=== PATIENT | female | born 1940 | race Caucasian/White ===

== ENCOUNTER → 2016-06-10 | Outpatient (CLI) | payer OTHER ==
[~2016-06-10] MED LIST: ACET-1256 PO; ANAS1TAB19 PO; ASPI81TA28 PO; CALC-354 PO; GLIP-197 PO; IPRA0.037 NAE; MAGN1TAB15 PO; MELO15TA4 PO; METF1000 PO; PANT1TAB3 PO; PRT/20 PO; SIMV20TA2 PO; ZNTT/150 PO
[2016-06-10 12:59] LABS: ALT/SGPT 42 U/L (12-78); AST/SGOT 32 U/L (15-37); BLOOD UREA NITROGEN 18 mg/dl (7-18); BUN/CREATININE RATIO 21.5 (10-20); CALCIUM 9.3 mg/dl (8.5-10.1); CARBON DIOXIDE 28 mmol/L (21-32); CHLORIDE 103 mmol/L (98-107); CREATININE 0.82 mg/dl (0.60-1.20); GLUCOSE 145 mg/dl (70-99); POTASSIUM 4.1 mmol/L (3.5-5.1); SODIUM 139 mmol/L (136-145)
[2016-06-10 13:10] LABS: ESTIMATED AVERAGE GLUCOSE 160 mg/dl; HA1C FLAG Normal (Normal)
[2016-06-10 13:11] LABS: ALB/GLOB RATIO 1.1 (0.9-2); ALKALINE PHOSPHATASE 59 U/L (45-117); CHOLESTEROL 118 mg/dl (0-200); HDL CHOLESTEROL 39 mg/dl; LDL CHOLESTEROL CALCULATED 52 mg/dl; TRIGLYCERIDES 133 mg/dl (0-150); VERY LOW DENSITY LIPOPROT CALC 27 mg/dl
[2016-06-10 13:18] LABS: RATIO 27.9 mcg/mg (0-30.0)
== END | disposition home or self-care (01) ==
LOC: C.LABPVFM 09:03
PROVIDERS: ATTEND Family Medicine
DX: Z13.29 Encounter for screening for other suspected endocrine disorder (principal); E78.5 Hyperlipidemia, unspecified; E11.9 Type 2 diabetes mellitus without complications

== ENCOUNTER → 2016-08-31 | Outpatient (CLI) | payer OTHER ==
[~2016-08-31] MED LIST changes: -PANT1TAB3 PO; +PANT1TAB48 PO
[2016-08-31 13:42] VITALS: BP 118/72; PULSE 71; TEMP 36.7; O2SAT 95
--- NOTE | 2016-08-31 17:22 | Radiation Oncology Follow-Up ---
Radiation Oncology Follow-Up Date of Visit Aug 31, 2016. Reason For Visit Annual follow-up Radiation Completion Date finished 01-22-2015 Diagnosis (1) Lobular carcinoma of left breast Status: Resolved Onset Date: 12/03/2014 Stage: l (A) Permanent Comment: Abnormal left breast mammogram Status post core needle biopsy 12/03/2014 revealing invasive lobular carcinoma grade 1 Estrogen receptor positive, progesterone receptor positive, HER-2/aziza negative Status post lumpectomy and sentinel lymph node biopsy 12/23/2014 Stage [id number] Status post completion of radiation therapy 01/22/2015 received 3850 cGy utilizing accelerated partial breast treatment Last Edited By: Lola Sanz on Sep 03, 2015 14:14 History of Present Illness Ms. Rosales is a 76-year-old female without a family history of breast cancer. She was being followed with routine screening mammograms. She underwent bilateral digital screening mammogram on 11/20/2014. These studies were compared to the previous studies dated 11/19/2013. This study showed a 10 mm focal asymmetry with questionable associated architectural distortion in the left upper inner quadrant. Recommendations are for spot magnification views, true lateral views and possible breast ultrasounds. On 11/20/2014 patient underwent a left true lateral, spot compression CC and ML views. The tissue of the left breast is heterogeneously dense. There was persistence of an irregular mass with spiculated margins in the upper inner posterior left breast measuring 6.9 x 8.2 mm. No definite associated microcalcifications were noted. Real-time high-resolution sonographic evaluation was performed of the left upper inner quadrant. In the left breast at the 9:30 position 5 cm from the nipple an ill-defined hypoechoic solid- appearing mass measuring approximately 5.6 x 4.6 x 5.0 mm was identified. This was felt to correlate with the mammographic abnormality. This was given a BI-RADS Category 4 C of moderate suspicion for malignancy and a biopsy was recommended. On 12/03/2014 the patient underwent an ultrasound-guided core biopsy of the left breast lesion. This revealed an invasive lobular carcinoma, Shiv grade 1 of 3. Was no lymphovascular or perineural invasion identified. Estrogen receptors were positive (100%, strong intensity, H-score: 300). Estrogen receptors positive (85%, variable intensity, H-score: 170) HER-2/aziza overexpression negative. Ki-67 proliferation index 5% (low). HER-2/ aziza oncogene amplification by FISH confirmed the negative result obtained by immunohistochemistry. Case: [id number]. The patient is scheduled for a partial mastectomy and sentinel biopsy this Tuesday, December 23 and is scheduled to see Dr. Baker for medical oncology referral on 01/01/2015. The patient had questions about the role of radiation and wished to address them prior to her planned surgery. It is for this reason that we are asked to see the patient in referral. She return to our office and underwent CT simulation. She was found to be a good candidate for accelerated partial breast treatment. Interim History She's been doing well over this past year. She denies any changes to her breast. She has noted no masses or tenderness no change of the axilla. She's had no swelling of her arm. She is up-to-date on mammography. She did state that she will need scheduled for her next mammogram in November. Her last mammogram was a unilateral mammogram in May. She is on Arimidex and denies side effects. Allergies Coded Allergies: Doxycycline (Verified Allergy, Unknown, HIVES, 06/20/15) Home Medications Scheduled Anastrozole (Arimidex), 1 TAB PO QAM Aspirin (Aspirin Ec), 81 MG PO DAILY Calcium Carbonate-Cholecalcife (Caltrate 600+D), 1 TAB PO BID Glipizide (Glipizide Er), 1 TAB PO QAM Ipratropium [place] (Nasal) (Atrovent Nasal [place]), 2 SPRY ANGELLA BID Magnesium Chloride-Calcium Car (Slow Magnesium Chloride/ 70-117 mg), 1 TAB PO BID Meloxicam (Mobic), 15 MG PO QAM Metformin Hcl (Glucophage), 1,000 MG PO BID Ranitidine (Zantac), 1 TAB PO BID Simvastatin (Zocor), 20 MG PO QPM Scheduled PRN Acetaminophen (Tylenol), 1,000 MG PO TID PRN for Pain Review of Systems Gastrointestinal: Symptoms: WNL Oral: Symptoms: No Problems Respiratory: Symptoms: WNL Other Respiratory: " sinus drainage " Urinary: Symptoms: Nocturia Comments: nocturia times 1 or 2 Skin: Symptoms: No Problems Breast: Right Upper Arm Measurement: 30.0 Right Mid Arm Measurement: 24.0 Right Wrist Measurement: 16.5 Left Upper Arm Measurement: 30.0 Left Mid Arm Measurement: 22.5 Left Wrist Measurement: 17.2 Arm Dominence: Right Patient Cosmetic Evaluation: Excellent Staff Cosmetic Evalaluation: Excellent Physical Exam Vital Signs Date Time Temp Pulse Resp B/P Pulse Ox O2 Delivery O2 Flow Rate FiO2 08/31/16 13:42 36.7 71 16 118/72 95 Pain: Side: Bilateral Pain Location: None Patient Pain Scale: 0 - 10 Initial Pain Intensity: 0.0 Fatigue: None General Appearance: no apparent distress Eyes: normal inspection, EOMI Neck: no adenopathy, thyroid normal Respiratory/Chest: lungs clear, no respiratory distress, no accessory muscle use Breast: Breast examination reveals well-healed incisions of the left breast. There are no masses or tenderness no axillary adenopathy. There is mild fibrous changes above the incision. There is no telangiectasis or skin retractions. There are no nipple changes. Using the Energy score cosmesis she has a excellent outcome. The right breast showed no masses or tenderness and no axillary adenopathy. Cardiovascular: regular rate, rhythm, no gallop, no murmur Extremities: no pedal edema Neurologic/Psychiatric: no motor/sensory deficits, alert, normal mood/affect Skin: warm/dry Lymphatic: no adenopathy Laboratory Studies Test 06/10/16 09:10 06/10/16 09:15 08/11/16 13:43 Sodium Level 139 mmol/L (136-145) 140 mmol/L (136-145) Potassium Level 4.1 mmol/L (3.5-5.1) 4.2 mmol/L (3.5-5.1) Chloride Level 103 mmol/L (98-107) 104 mmol/L (98-107) Carbon Dioxide Level 28 mmol/L (21-32) 29 mmol/L (21-32) Anion Gap 8.0 mmol/L (3-11) 7.0 mmol/L (3-11) Blood Urea Nitrogen 18 mg/dl (7-18) 19 mg/dl (7-18) Creatinine 0.82 mg/dl (0.60-1.20) 0.85 mg/dl (0.60-1.20) Estimated GFR () 81.1 77.1 Estimated GFR (Non- 70.0 66.6 BUN/Creatinine Ratio 21.5 (10-20) 21.8 (10-20) Random Glucose 145 mg/dl (70-99) 142 mg/dl (70-99) Estimated Average Glucose 160 mg/dl Hemoglobin A1c 7.2 % (4.5-5.6) Calcium Level 9.3 mg/dl (8.5-10.1) 9.3 mg/dl (8.5-10.1) Total Bilirubin 0.4 mg/dl (0.2-1) 0.4 mg/dl (0.2-1) Aspartate Amino Transferase (AST) 32 U/L (15-37) 24 U/L (15-37) Alanine Aminotransferase (ALT) 42 U/L (12-78) 39 U/L (12-78) Alkaline Phosphatase 59 U/L (45-117) 63 U/L (45-117) Total Protein 7.0 gm/dl (6.4-8.2) 7.3 gm/dl (6.4-8.2) Albumin 3.7 gm/dl (3.4-5.0) 3.8 gm/dl (3.4-5.0) Globulin 3.3 gm/dl (2.5-4.0) 3.5 gm/dl (2.5-4.0) Albumin/Globulin Ratio 1.1 (0.9-2) 1.1 (0.9-2) Triglycerides Level 133 mg/dl (0-150) Cholesterol Level 118 mg/dl (0-200) HDL Cholesterol 39 mg/dl LDL Cholesterol, Calculated 52 mg/dl VLDL Cholesterol, Calculated 27 mg/dl Cholesterol/HDL Ratio 3.0 Thyroid Stimulating Hormone (TSH) 3.140 uIu/ml (0.300-4.500) Urine Random Creatinine 68.0 mg/dl Urine Random Microalbumin 19.0 mg/L Urine Microalbumin/Creatinine Ratio 27.9 mcg/mg (0-30.0) White Blood Count 7.38 K/uL (4.8-10.8) Red Blood Count 4.65 M/uL (4.2-5.4) Hemoglobin 13.8 g/dL (12.0-16.0) Hematocrit 41.0 % (37-47) Mean Corpuscular Volume 88.2 fL (80-100) Mean Corpuscular Hemoglobin 29.7 pg (25-34) Mean Corpuscular Hemoglobin Concent 33.7 g/dl (32-36) Platelet Count 219 K/uL (130-400) Mean Platelet Volume 10.5 fL (7.4-10.4) Neutrophils (%) (Auto) 49.6 % Lymphocytes (%) (Auto) 41.2 % Monocytes (%) (Auto) 4.5 % Eosinophils (%) (Auto) 4.1 % Basophils (%) (Auto) 0.5 % Neutrophils # (Auto) 3.66 K/uL (1.4-6.5) Lymphocytes # (Auto) 3.04 K/uL (1.2-3.4) Monocytes # (Auto) 0.33 K/uL (0.11-0.59) Eosinophils # (Auto) 0.30 K/uL (0-0.5) Basophils # (Auto) 0.04 K/uL (0-0.2) RDW Standard Deviation 43.6 fL (36.4-46.3) RDW Coefficient of Variation 13.6 % (11.5-14.5) Immature Granulocyte % (Auto) 0.1 % Immature Granulocyte # (Auto) 0.01 K/uL (0.00-0.02) Est Creatinine Clear Calc Drug Dose 54.7 ml/min Lactate Dehydrogenase 161 U/L (84-246) Additional Studies UNILATERAL LEFT DIGITAL DIAGNOSTIC MAMMOGRAM TOMOSYNTHESIS WITH CAD: 05/10/2016 CLINICAL HISTORY: 75-year-old woman presents for follow-up in the left breast status post treatment for left breast cancer performed December 2014. TECHNIQUE: Breast tomosynthesis in addition to standard 2D mammography was performed of the left breast. Current study was also evaluated with a Computer Aided Detection (CAD) system. COMPARISON: Comparison is made to exams dated: 11/06/2015 mammogram, 11/27/2014 mammogram, 11/27/2014 ultrasound, 11/20/2014 mammogram, and 11/19/2013 mammogram - [facility]. BREAST COMPOSITION: The tissue of the left breast is heterogeneously dense, which may obscure small masses. FINDINGS: There is expected architectural distortion, density and surgical clips in the 10:00 left breast, at the site of prior lumpectomy. There are stable rodlike calcifications posterior to the surgical site and moderate vascular calcifications in the left breast. A few benign round calcifications are also seen. No new suspicious mass, architectural distortion or cluster of microcalcifications is identified throughout the left breast. IMPRESSION: IMPRESSION: ACR-BI-RADS CATEGORY 3: PROBABLY BENIGN There are expected post treatment changes in the left breast from previous lumpectomy and radiation therapy. No definite mammographic evidence of malignancy. Recommend bilateral mammography in 6 months to ensure 2 years of stability post treatment for left breast cancer. These results and recommendations were discussed with the patient at the time of the exam. Approximately 10% of breast cancers are not detected with mammography. A negative mammographic report should not delay biopsy if a clinically suggestive mass is present. Nicole Reynolds M.D. ay/:05/10/2016 10:51:00 Assessment & Plan Plan: Patient was scheduled for her next mammogram. This will be a bilateral diagnostic mammogram. She continues on Arimidex. Continue regular follow-up with Dr. Baker and her primary care physician. We asked her to return to our office in 1 year. She may call if she has any questions or concerns in the interim. Total Time In Follow-Up I spent 20 minutes speaking to the patient performing examination. I spent 15 minutes reviewing information and completing this note. Copy To Cornelius Baker D.O.; Angeli Dutta M.D.
== END | disposition home or self-care (01) ==
LOC: C.ONC 13:17
PROVIDERS: ATTEND Physician Assistant Medical
DX: Z08 Encounter for follow-up examination after completed treatment for malignant neoplasm (principal); Z92.3 Personal history of irradiation; Z85.3 Personal history of malignant neoplasm of breast

== ENCOUNTER → 2016-11-10 | Outpatient (CLI) | payer OTHER ==
[~2016-11-10] MED LIST changes: -PANT1TAB48 PO; -PRT/20 PO
--- NOTE | 2016-11-10 17:13 | MAMMOGRAPHY REPORT ---
BILATERAL DIGITAL DIAGNOSTIC MAMMOGRAM TOMOSYNTHESIS WITH CAD: 11/10/2016 CLINICAL HISTORY: History of left breast cancer status post lumpectomy December 2014, here for interval f ollow-up. The patient reports no current complaints. TECHNIQUE: Breast tomosynthesis in addition to standard 2D mammography was performed. Current study was also evaluated with a Computer Aided Detection (CAD) system. Bilateral CC and MLO 2-D and tomosy nthesis images and spot magnification left CC and ML views were obtained. COMPARISON: Comparison is made to exams dated: 05/10/2016 mammogram, 11/06/2015 mammogram, 05/06/2015 ma mmogram, 12/23/2014 specimen, 12/23/2014 mammogram, and 12/23/2014 localization - [facility]. BREAST COMPOSITION: The tissue of both breasts is heterogeneously dense, which may obscure small mas ses. FINDINGS: There has been no significant interval change compared to prior exams. There are stable p ost surgical changes in the left upper inner quadrant from prior lumpectomy, including stable density , architectural distortion, and surgical clips at the lumpectomy bed. Benign coarse dystrophic calci fications in the left medial breast are stable. There are no suspicious masses, calcifications, or a reas of nonsurgical architectural distortion noted within either breast. IMPRESSION: ACR BI-RADS CATEGORY 2: BENIGN There is no mammographic evidence of malignancy in either breast. A 1 year screening mammogram is rec ommended. The patient has been verbally notified of the results. Approximately 10% of breast cancers are not detected with mammography. A negative mammographic report should not delay biopsy if a clinically suggestive mass is present. Summer Vasquez M.D. ah/:11/10/2016 14:38:35 Nuclear Power Reactor Operator: Francine Chapman RT(R)(M), [facility] letter sent: Normal 1/2 BI-RADS Code: ACR BI-RADS Category 2: Benign
== END | disposition home or self-care (01) ==
LOC: C.MAMM 13:07
PROVIDERS: ATTEND Physician Assistant Medical
DX: Z85.3 Personal history of malignant neoplasm of breast (principal)

== ENCOUNTER → 2016-12-06 | Outpatient (CLI) | payer OTHER ==
[2016-12-06 13:22] LABS: ESTIMATED AVERAGE GLUCOSE 157 mg/dl; HA1C FLAG Normal (Normal)
[2016-12-06 13:40] LABS: ALT/SGPT 41 U/L (12-78); BLOOD UREA NITROGEN 16 mg/dl (7-18); BUN/CREATININE RATIO 19.8 (10-20); CALCIUM 9.1 mg/dl (8.5-10.1); CARBON DIOXIDE 26 mmol/L (21-32); CHLORIDE 106 mmol/L (98-107); GLUCOSE 148 mg/dl (70-99); MAGNESIUM 1.7 mg/dl (1.8-2.4); POTASSIUM 4.2 mmol/L (3.5-5.1); SODIUM 140 mmol/L (136-145)
[2016-12-06 13:42] LABS: ALB/GLOB RATIO 1.1 (0.9-2); ALKALINE PHOSPHATASE 59 U/L (45-117); AST/SGOT 28 U/L (15-37)
== END | disposition home or self-care (01) ==
LOC: C.LABPVFM 08:22
PROVIDERS: ATTEND Family Medicine
DX: E78.5 Hyperlipidemia, unspecified (principal); E11.9 Type 2 diabetes mellitus without complications; J31.0 Chronic rhinitis; K21.9 Gastro-esophageal reflux disease without esophagitis; C50.919 Malignant neoplasm of unspecified site of unspecified female breast; E83.42 Hypomagnesemia

== ENCOUNTER → 2017-05-03 | Outpatient (CLI) | payer OTHER | END | disposition home or self-care (01) | LOC: C.MAMM 13:01 | PROVIDERS: ATTEND Nurse Practitioner Family | DX: D49.3 Neoplasm of unspecified behavior of breast (principal); M85.851 Other specified disorders of bone density and structure, right thigh; M85.852 Other specified disorders of bone density and structure, left thigh ==

== ENCOUNTER → 2017-06-20 | Outpatient (CLI) | payer OTHER ==
[2017-06-20 14:04] LABS: ALBUMIN 3.6 gm/dl (3.4-5.0); BLOOD UREA NITROGEN 17 mg/dl (7-18); CARBON DIOXIDE 28 mmol/L (21-32); CREATININE 0.77 mg/dl (0.60-1.20); GLUCOSE 151 mg/dl (70-99); POTASSIUM 4.1 mmol/L (3.5-5.1); SODIUM 138 mmol/L (136-145)
[2017-06-20 14:10] LABS: ALKALINE PHOSPHATASE 56 U/L (45-117); ALT/SGPT 42 U/L (12-78); AST/SGOT 25 U/L (15-37); CHOLESTEROL 119 mg/dl (0-200); LDL CHOLESTEROL CALCULATED 60 mg/dl; TOTAL PROTEIN 6.9 gm/dl (6.4-8.2)
== END | disposition home or self-care (01) ==
LOC: C.LABPVFM 09:27
PROVIDERS: ATTEND Family Medicine
DX: E78.5 Hyperlipidemia, unspecified (principal); N81.6 Rectocele; E11.9 Type 2 diabetes mellitus without complications; E83.42 Hypomagnesemia

== ENCOUNTER → 2017-08-30 | Outpatient (CLI) | payer OTHER ==
[~2017-08-30] MED LIST changes: +MELO-84 PO; -MELO15TA4 PO; +RANI150T85 PO; -ZNTT/150 PO
[2017-08-30 15:10] VITALS: BP 138/84; PULSE 80; TEMP 36.6; O2SAT 95
--- NOTE | 2017-08-30 17:07 | Radiation Oncology Follow-Up ---
Radiation Oncology Follow-Up Date of Visit Aug 30, 2017. Reason For Visit Annual follow-up Radiation Completion Date finished 01-22-2015 Diagnosis (1) Lobular carcinoma of left breast Status: Resolved Onset Date: 12/03/2014 Stage: l (A) Permanent Comment: Abnormal left breast mammogram Status post core needle biopsy 12/03/2014 revealing invasive lobular carcinoma grade 1 Estrogen receptor positive, progesterone receptor positive, HER-2/aziza negative Status post lumpectomy and sentinel lymph node biopsy 12/23/2014 Stage [id number] Status post completion of radiation therapy 01/22/2015 received 3850 cGy utilizing accelerated partial breast treatment Last Edited By: Lola Sanz on Sep 03, 2015 14:14 History of Present Illness Ms. Rosales is without a family history of breast cancer. She was being followed with routine screening mammograms. She underwent bilateral digital screening mammogram on 11/20/2014. These studies were compared to the previous studies dated 11/19/2013. This study showed a 10 mm focal asymmetry with questionable associated architectural distortion in the left upper inner quadrant. Recommendations are for spot magnification views, true lateral views and possible breast ultrasounds. On 11/20/2014 patient underwent a left true lateral, spot compression CC and ML views. The tissue of the left breast is heterogeneously dense. There was persistence of an irregular mass with spiculated margins in the upper inner posterior left breast measuring 6.9 x 8.2 mm. No definite associated microcalcifications were noted. Real-time high-resolution sonographic evaluation was performed of the left upper inner quadrant. In the left breast at the 9:30 position 5 cm from the nipple an ill-defined hypoechoic solid- appearing mass measuring approximately 5.6 x 4.6 x 5.0 mm was identified. This was felt to correlate with the mammographic abnormality. This was given a BI-RADS Category 4 C of moderate suspicion for malignancy and a biopsy was recommended. On 12/03/2014 the patient underwent an ultrasound-guided core biopsy of the left breast lesion. This revealed an invasive lobular carcinoma, [place] grade 1 of 3. Was no lymphovascular or perineural invasion identified. Estrogen receptors were positive (100%, strong intensity, H-score: 300). Estrogen receptors positive (85%, variable intensity, H-score: 170) HER-2/aziza overexpression negative. Ki-67 proliferation index 5% (low). HER-2/ aziza oncogene amplification by FISH confirmed the negative result obtained by immunohistochemistry. Case: [id number]. The patient is scheduled for a partial mastectomy and sentinel biopsy this December 23 and is scheduled to see Dr. Baker for medical oncology referral on 01/01/2015. The patient had questions about the role of radiation and wished to address them prior to her planned surgery. It is for this reason that we are asked to see the patient in referral. She return to our office and underwent CT simulation. She was found to be a good candidate for accelerated partial breast treatment. Interim History She has been doing well over this past year. She denies any changes to her breast. She has occasional mild discomfort. This is brief and minimal. She has noted no masses or tenderness no change of the axilla. She is up-to-date on mammography. She is on Arimidex and denies side effects. Allergies Coded Allergies: Doxycycline (Verified Allergy, Unknown, HIVES, 06/20/15) Home Medications Scheduled Anastrozole (Arimidex), 1 TAB PO QAM Aspirin (Aspirin Ec), 81 MG PO DAILY Calcium Carbonate-Cholecalcife (Caltrate 600+D), 1 TAB PO BID Glipizide (Glipizide Er), 1 TAB PO QAM Ipratropium [place] (Nasal) (Atrovent Nasal [place]), 2 SPRY ANGELLA BID Magnesium Chloride-Calcium Car (Slow Magnesium Chloride/ 70-117 mg), 1 TAB PO BID Meloxicam (Mobic), 15 MG PO QAM Metformin Hcl (Glucophage), 1,000 MG PO BID Ranitidine (Zantac), 1 TAB PO BID Simvastatin (Zocor), 20 MG PO QPM Scheduled PRN Acetaminophen (Tylenol), 1,000 MG PO TID PRN for Pain Review of Systems Gastrointestinal: Symptoms: WNL Oral: Symptoms: No Problems Respiratory: Symptoms: WNL Other Respiratory: " sinus drainage " Urinary: Symptoms: Nocturia Comments: nocturia times 1 Skin: Symptoms: No Problems Breast: Right Upper Arm Measurement: 30.0 Right Mid Arm Measurement: 24.0 Right Wrist Measurement: 16.9 Left Upper Arm Measurement: 30.0 Left Mid Arm Measurement: 23.5 Left Wrist Measurement: 18.0 Arm Dominence: Right Patient Cosmetic Evaluation: Excellent Staff Cosmetic Evalaluation: Excellent Physical Exam Vital Signs Date Time Temp Pulse Resp B/P (MAP) Pulse Ox O2 Delivery O2 Flow Rate FiO2 08/30/17 15:10 36.6 80 16 138/84 95 Fatigue: None General Appearance: no apparent distress Eyes: normal inspection, EOMI ENT: normal ENT inspection, hearing grossly normal Neck: no adenopathy, thyroid normal Respiratory/Chest: lungs clear, no respiratory distress, no accessory muscle use Breast: Breast examination reveals well-healed incisions of the left breast. There are fibrous changes around the area of the incision. There is slight telangiectasia. There are no distinct masses. There is no tenderness and no axillary adenopathy. Using the Bradford score cosmesis she has a good outcome. The right breast showed no masses or tenderness and no axillary adenopathy. Cardiovascular: regular rate, rhythm, no gallop, no murmur Extremities: no pedal edema Neurologic/Psychiatric: no motor/sensory deficits, alert, normal mood/affect Skin: warm/dry Pain Management Patient Reports Pain: No Side: Bilateral Patient Preferred Pain Scale: 0 - 10 Initial Pain Intensity: 0.0 Pain Management Plan She has no pain therefore requires no pain management. Laboratory Laboratory Results: not applicable Pathology Pathology Results: were reviewed, and pertinent findings noted in HPI Imaging Imaging Studies: were reviewed, and pertinent findings noted below Imaging Comments Patient: MARY LOU ROSALES [facility] Rec: [id number] Address1: [address] Address2: [place] ID: [id number] Date: 1940 Sex: F Ref Phy: Lola Sanz PA-C Att Phy: Lola Sanz PA-C Gricelda Phy: Angeli Dutta M.D. Inter Phy: Summer Vasquez MD [facility] Zip: [place] [address] SC: C.MAMM Report #: [id number] Couture Dressmaker: GRACY Diagnosis: 6 MO F/U TO ENSURE STABILITY- Service Date: 11/10/16 MNE: [id number] Ordering Dr: Lola Sanz PA-C CC: Lola Sanz PA-C CONF: DICTATED BY: Summer Vasquez MD MAMMOGRAPHY REPORT BILATERAL DIGITAL DIAGNOSTIC MAMMOGRAM TOMOSYNTHESIS WITH CAD: 11/10/2016 CLINICAL HISTORY: History of left breast cancer status post lumpectomy December 2014 , here for interval follow-up. The patient reports no current complaints. TECHNIQUE: Breast tomosynthesis in addition to standard 2D mammography was performed. Current study was also evaluated with a Computer Aided Detection (CAD ) system. Bilateral CC and MLO 2-D and tomosynthesis images and spot magnification left CC and ML views were obtained. COMPARISON: Comparison is made to exams dated: 05/10/2016 mammogram, 11/06/2015 mammogram, 05/06/2015 mammogram, 12/23/2014 specimen, 12/23/2014 mammogram, and localization - [facility]. BREAST COMPOSITION: The tissue of both breasts is heterogeneously dense, which may obscure small masses. FINDINGS: There has been no significant interval change compared to prior exams. There are stable post surgical changes in the left upper inner quadrant from prior lumpectomy, including stable density, architectural distortion, and surgical clips at the lumpectomy bed. Benign coarse dystrophic calcifications in the left medial breast are stable. There are no suspicious masses, calcifications, or areas of nonsurgical architectural distortion noted within either breast. IMPRESSION: ACR BI-RADS CATEGORY 2: BENIGN There is no mammographic evidence of malignancy in either breast. A 1 year screening mammogram is recommended. The patient has been verbally notified of the results. Approximately 10% of breast cancers are not detected with mammography. A negative mammographic report should not delay biopsy if a clinically suggestive mass is present. Summer Vasquez M.D. ah/:11/10/2016 14:38:35 Electrical High Tension Tester: Francine PENNINGTON(Lacey)([place]), [facility] letter sent: Normal 1/2 BI-RADS Code: ACR BI-RADS Category 2: Benign Dictated by: Summer Vasquez MD Signed by: Summer Vasquez MD Assessment & Plan Plan: Continue regular follow-up with medical oncology and her primary care physician. She continues on Arimidex. Continue with scheduled mammography. We asked her to return to our office in 1 year. She may call if she has any questions or concerns in the interim. Total Time In Follow-Up I spent 20 minutes speaking to the patient and performing examination. I spent 15 minutes reviewing information on completing this note. Copy To Cornelius Baker D.O.; Angeli Dutta M.D.
== END | disposition home or self-care (01) ==
LOC: C.ONC 14:32
PROVIDERS: ATTEND Physician Assistant Medical
DX: Z08 Encounter for follow-up examination after completed treatment for malignant neoplasm (principal); Z92.3 Personal history of irradiation; Z85.3 Personal history of malignant neoplasm of breast

== ENCOUNTER 2023-07-12 06:12 | Inpatient (IN) ==
--- NOTE | 2023-07-07 09:57 | Anesthesiology Consultation ---
Date of Service July 07, 2023 Assessment & Plan (1) Encounter for pre-operative examination: - Check BSG AM DOS - Infectious disease screening: Per assessment on 07/07/23: No known infectious disease contacts or current infectious disease symptoms. No noted recent Covid positive test result. - PCP note (07/07/23): "Low to moderate risk.. Patient is cleared for scheduled surgery" Chart Review Chart Review: Acceptable Risk for Surgery and Patient NOT seen in Pre Admission Testing History Surgery Operation Date: 07/12/23 07:45 Proposed Procedures p L3-L5 Decompression and Fusion, Spinal Cord Monitoring - Ramos Coombs DO Height/Weight Height: 5 ft 3 in Weight: 70.307 kg Allergies Allergy/AdvReac Type Severity Reaction Status Date / Time doxycycline Allergy Mild HIVES Verified 07/07/23 13:33 Medications Home Medications Medication Instructions Recorded Confirmed Last Taken anastrozole 1 mg tablet (Arimidex) 1 mg PO QAM 07/28/18 07/07/23 03/05/21 magnesium chloride 71.5 mg 1 tab PO BID 07/28/18 07/07/23 03/05/21 (magnesium chloride) tablet,delayed release (Slow-Mag) calcium carbonate 600 mg-vitamin 1 tab PO BID 02/20/19 07/07/23 03/05/21 D3 20 mcg (800 unit) chewable tablet (Caltrate 600 plus D) cetirizine 10 mg tablet (Zyrtec) 10 mg PO QAM 02/20/19 07/07/23 03/05/21 conjugated estrogens 0.625 mg/gram 0.625 mg vaginal UD 02/20/19 07/07/23 03/05/21 vaginal cream (Premarin) acetaminophen 650 mg 1,300 mg PO Q8H PRN Pain 02/20/21 07/07/23 03/05/21 tablet,extended release cholecalciferol (vitamin D3) 25 25 mcg PO QPM 02/20/21 07/07/23 03/05/21 mcg (1,000 unit) capsule (Vitamin D3) metformin 1,000 mg tablet 1,000 mg PO BID #180 tabs 10/21/22 07/07/23 Unknown famotidine 20 mg tablet (Pepcid) 20 mg PO BID #180 tabs 11/30/22 07/07/23 Unknown fluticasone propionate 50 1 spray intranasal DAILY #48 grams 01/10/23 07/07/23 Unknown mcg/actuation nasal spray,suspension glipizide 10 mg tablet, extended 10 mg PO QAM #90 tabs 02/16/23 07/07/23 Unknown release 24 hr multivitamin 1 tab PO QAM 03/09/23 07/07/23 Unknown insulin glargine 100 unit/mL (3 25 unit (0.25 mL) subcut QPM #18 mL 05/05/23 07/07/23 Unknown mL) subcutaneous pen (Basaglar KwikPen U-100 Insulin) pen needle, diabetic 32 gauge x #100 ea 07/05/23 07/07/23 Unknown 5/32" (BD Ultra-Fine Clotilde Pen Needle) Probiotic 1 cap PO QAM 07/07/23 07/07/23 Unknown flash glucose scanning reader #1 ea 07/07/23 07/07/23 Unknown (FreeStyle Susy 2 [place]) flash glucose sensor (FreeStyle #1 ea 07/07/23 07/07/23 Unknown Susy 2 Sensor kit) omeprazole 20 mg capsule,delayed 20 mg PO QAM 07/07/23 07/07/23 Unknown release simvastatin 20 mg tablet 20 mg PO QPM 07/07/23 07/07/23 Unknown Past Medical History Medical History Cardiac murmur Echo (done 2020 for murmur evaluation): Mild mitral annular calcification, trace MR/TR Chronic back pain Chronic SI joint pain Diabetes mellitus, type 2 GERD (gastroesophageal reflux disease) Hearing deficit bilateral hearing aids History of colon polyps Lobular carcinoma of left breast 2014- surgery/radiation/oral chemo LUE restriction Migraine Hx Osteoarthritis Seborrheic keratosis Spinal stenosis, lumbar region with neurogenic claudication Past Family History Family History Brother Family history of diabetes mellitus Family hx colonic polyps Father Myocardial infarction Other Coronary heart disease No family history of adverse response to anesthesia Denies family history of Ovarian cancer Prostate cancer Breast cancer Colorectal cancer Past Surgical History Surgical History History of cataract surgery R/L History of section History of colonoscopy History of endoscopic sinus surgery History of esophagogastroduodenoscopy (EGD) History of hemorrhoidectomy History of left breast biopsy malignant History of lumpectomy of left breast LUE restriction History of unilateral salpingectomy left History of wisdom tooth extraction Hx of sinus surgery Nausea and vomiting after administration of anesthetic agent many years ago, no issues recently Status post left partial knee replacement Social History Smoking Status: Never smoker Do You Dip or Chew Tobacco: No Hx Alcohol Use: No Hx Substance Use: No substance use type: does not use Lab Results Anesthesia Preop Results Results Anesthesia Widget: WBC 7.47 K/ul (4.8-10.8) 07/01/23 Hgb 12.7 g/dl (12.0-16.0) 07/01/23 Hct 39.1 % (37.0-47.0) 07/01/23 Plt 218 K/uL (130-400) 07/01/23 Na 139 mmol/L (136-145) 07/01/23 K 4.3 mmol/L (3.5-5.1) 07/01/23 Cl 103 mmol/L (98-107) 07/01/23 CO2 25 mmol/L (21-32) 07/01/23 BUN 16 mg/dl (6-23) 07/01/23 Creat 0.72 mg/dl (0.6-1.2) 07/01/23 Glucose Level 118 mg/dl (70-99(Fasting)) H 07/01/23 PT 11.1 Seconds (9.0-12.0) 07/01/23 INR 1.0 (0.9-1.1) 07/01/23 HA1c 8.4 % (4.5-5.6) H 07/01/23 Urine Color Yellow 07/01/23 Urine Appearance Clear (Clear) 07/01/23 Urine pH 5.5 (4.5-7.5) 07/01/23 Urine Specific [place] 1.023 (1.000-1.030) 07/01/23 Urine Protein Negative (Negative) 07/01/23 Urine Glucose (UA) Negative (Negative) 07/01/23 Urine Ketones Trace (Negative) H 07/01/23 Urine Blood Negative (Negative) 07/01/23 Urine Nitrite Negative (Negative) 07/01/23 Urine Bilirubin Negative (Negative) 07/01/23 Urine Urobilinogen Negative (Negative) 07/01/23 Urine Leukocyte Esterase 2+ (Negative) H 07/01/23 Blood Type A Positive 07/01/23 Antibody Screen NEGATIVE 07/01/23 Testing Laboratory Results Urine culture (07/05/23): pin-point growth present, reincubating (preliminary report) Surgeon/PCP aware of abnormal preop UA > ordered urine culture* Electrocardiogram Date: 07/01/23 NSR at 80bpm. NS STA. Chest X-Ray Date: 07/01/23 Findings: + NAD Echocardiogram Date: 10/13/20 EF > 70%. No RWMA. Mild cLVH. Normal estimated RVSP, assuming normal right atrial pressure. Trace MR/TR.
--- OUTSIDE RECORDS SUMMARY | 2023-07-12 07:04 | External Medical Summary | Summary of Care ---
Author Name Unknown Organization [facility] Address [address] [place] [address] Phone [phone] Care Team Providers Care Bookmobile Clerk Name Role Phone Unavailable Primary Care Provider Unavailabl e Encounter Details Date Type Department Care Team (Late st Contact Info) Description 07/11/2023 Orders Only Outcomes Research Department [address] [place] [address] Gris Delgado CHRA MyCode Research Other*[id number] Allergies Active Allergy Reactions Criticality Noted Date Comments Doxycycline Hyclate 05/19/2010 documented as of this encounter (statuses as of 07/11/2023) Medications Medication Sig Dispensed Refills Start Date End Date Status ATROVENT 0.03 % NA SOLNIndications:Chron ic rhinitis,Dysfunction of eustachian tube 2 puffs per nostril 2 to 3 times a day as needed if drainage persists 1 Bottle 5 05/19/2010 Active SIMVASTATIN 20 MG PO TABS 1 tablet daily 0 Active ACETAMINOPHEN 500 MG PO CAPS as needed 0 Active Calcium Carbonate-Vitamin D (CALCIUM 600+D) 600-200 MG-UNIT per tablet 1 twice a day 0 Active glipiZIDE (GLUCOTROL) 5 MG Tablet 1 daily 0 Active anastrozole (ARIMIDEX) 1 MG Tablet 1 daily 0 Active MetFORMIN (GLUCOPHAGE) 1000 MG Tablet Take 1 Tablet by mouth 2 times a day with morning and evening meals. 0 Active Ipratropium [place] 0.06 % nasal spray 0 10/23/2016 Active Magnesium Cl-Calcium Carbonate (SLOW-MAG) 71.5-119 MG TBEC Take by mouth. 0 Acti ve Famotidine 20 MG Oral Tablet (Pepcid) Take 1 Tablet by mouth in the morning and 1 Tablet before bedtime. 0 Active Vitamin D (Cholecalciferol) 25 MCG (1000 UT) Oral Capsule Take by mouth. 0 Active Estrogens, Conjugated 0.625 MG/GM Vaginal Cream (Premarin) Administer into the vagina 0.5 g once a day Tuesday and only . Use 0.5 g with applicator at bedtime 30 g 6 12/28/2021 Active Insulin Glargine Solostar 100 UNIT/ML Subcutaneous Solution Pen-injector (Local Offer NetworkPen) Inject under the skin . 0 Active Premarin 0.625 MG/GM Vaginal Cream (Estrogens Conjugated) Administer 0.5 g into the vagina once a day Tuesday and only. At bedtime. 42.5 g 2 12/02/2022 Active documented as of this encounter (statuses as of 07/11/2023) Active Problems Problem Noted Date Diagnosed Date Advanced directives, counseling/discussion 04/11 Uterovaginal prolapse 12/17/2016 Cystocele, lateral 12/17/2016 Rectocele 12/17/2016 Feeling of incomplete bladder emptying 7 Presbycusis 05/26/2011 Esophageal reflux 10/13/2009 Chronic maxillary sinusitis 05/05/2007 Chronic rhinitis 05/05/2007 Chronic sinusitis NON ALLERGIC RHINITIS documented as of this encounter (statuses as of 07/11/2023) Immunizations Name Administration Dates Next Due COVID-19 mRNA, LNP-s, No Pre serve, 2-Dose Series (Promimic) 07/19/2020,06/27/2020 documented as of this encounter Social History Tobacco Use Types Packs/Day Years Used Date Smoking Tobacco: Never Smokeless Tobacco: Never Alcohol Use Standard Drinks/Week Comments No 0 (1 standard drink = 0.6 oz pur e alcohol) Sex and Gender Information Value Date Recorded Sex Assigned at Not on file Gender Identity Not on file Sexual Orientation Not on file Job Start Date Occupation Industry Not on file Not on file Not on file documented as of this encounter Plan of Treatment Upcoming Encounters Date Type Department Care Team (Late st Contact Info) Description 05/22/2024 11:05 AM EST Office Visit Urogynecology [facility] [address] [address] Placido Bowen MD [address] [place] [id number] Nurse Georgiana Prince [address] [place] [address] Scheduled Orders Name Type Priority Associated Diagnoses Orde r Schedule MYCODE INITIAL ADULT Lab Routine MyCode Research Other*[id number] Expected: 07/11/2023 (Approximate), Expires: 07/30/2024 Health Maintenance Due Date Last Done Comments Depression Screening 1952 DTaP,Tdap,and Td Vaccines (1 - Tdap) 08/07/1959 Zoster Vaccines (1 of 2) 1990 Pneumococcal Vaccine: 65+ Years (1 - PCV) 2005 DXA Scan 11/06/2017 11/06/2010, 0608/2010, 09/28/2006, Additional history exists COVID-19 Vaccine (3 - 2022-24 season) 2023 07/19/2020, 06/27/2020 Influenza Vaccine (FLU shot) (#1) 2023 GARDASIL-HPV IMMUNIZATION SERIES Aged Out No longer eligible based on patient's age to complete this topic Hepatitis B Aged Out No longer eligi ble based on patient's age to complete this topic MENINGOCOCCAL (MENACTRA/MENVEO) Aged Out No longer eligible based on patient's age to complete this topic documented as of this encounter Medical Devices Not on filedocumented as of this encounter Visit Diagnoses Diagnosis My[facility] Research Other*[id number] documented in this encounter
[2023-07-12] MEDS: LR 60ML/HR IV SCH (07:05)
[2023-07-12] MEDS: LR 15ML/HR IV SCH (07:05)
[2023-07-12] MEDS: CeleBREX 200 MG CAP PO SCH (07:06)
[2023-07-12] MEDS: ACETAMINOPHEN 500 MG TAB PO SCH (07:06)
[2023-07-12] MEDS: GABAPENTIN 300 MG CAP PO SCH (07:06)
[2023-07-12] MEDS ORDERED: ONDANSETRON INJ 2 MG/ML 2 ML VIAL ONE (07:13)
[2023-07-12] MEDS ORDERED: SUGAMMADEX SODIUM 200 MG/2 ML VIAL IV ONE (07:13)
[2023-07-12] MEDS ORDERED: fentaNYL citrate PF 100 MCG/2 ML VIAL ONE (07:13)
[2023-07-12] MEDS ORDERED: ROCURONIUM BROMIDE 10 MG/ML 5 ML VIAL IV ONE (07:13)
[2023-07-12] MEDS ORDERED: PROPOFOL IV EMULSION 10 MG/ML 20 ML VIAL IV ONE (07:13)
[2023-07-12] MEDS ORDERED: LIDOCAINE 2% 2 ML VIAL/AMP(20MG/ML) INFIL ONE (07:13)
[2023-07-12] MEDS ORDERED: DEXAMETHASONE SOD INJ 4 MG/ML VIAL ONE (07:13)
[2023-07-12] MEDS ORDERED: ePHEDrine sulfate 50 MG/ML AMP IV PRN (07:21)
[2023-07-12] MEDS ORDERED: ONDANSETRON INJ 2 MG/ML 2 ML VIAL IV PRN ×2 (07:21→11:28)
[2023-07-12] MEDS ORDERED: ATROPINE SULFATE 0.1 MG/ML 10ML SYR IV PRN (07:21)
--- NOTE | 2023-07-12 07:37 | History & Physical Bridge Note ---
Date of Service July 12, 2023 History & Physical Bridge Note I have examined the patient, reviewed the History & Physical and in the interval since the performance of the History & Physical I have noted the following changes of clinical significance: no changes noted
--- NOTE | 2023-07-12 07:39 | History & Physical Report ---
Date of Service July 12, 2023 Assessment & Plan (1) Neurogenic claudication due to lumbar spinal stenosis: Plan: L3-L5 decompression and fusion History of Present Illness Chief Complaint: Back and bilateral leg pain Primary Care Provider: Ruth Barnett MD This is a 82-year-old female who presents with persistent back and leg pain a failed extensive course of nonoperative care is here for surgical invention. Allergies Allergy/AdvReac Type Severity Reaction Status Date / Time doxycycline Allergy Severe HIVES Verified 07/12/23 06:51 Home Medications Medication Instructions Recorded Confirmed Type anastrozole 1 mg tablet (Arimidex) 1 mg PO QAM 07/28/18 07/12/23 History magnesium chloride 71.5 mg 1 tab PO BID 07/28/18 07/12/23 History (magnesium chloride) tablet,delayed release (Slow-Mag) calcium carbonate 600 mg-vitamin 1 tab PO BID 02/20/19 07/12/23 History D3 20 mcg (800 unit) chewable tablet (Caltrate 600 plus D) cetirizine 10 mg tablet (Zyrtec) 10 mg PO QAM 02/20/19 07/12/23 History conjugated estrogens 0.625 mg/gram 0.625 mg vaginal UD 02/20/19 07/12/23 History vaginal cream (Premarin) acetaminophen 650 mg 1,300 mg PO Q8H PRN Pain 02/20/21 07/12/23 History tablet,extended release cholecalciferol (vitamin D3) 25 25 mcg PO QPM 02/20/21 07/12/23 History mcg (1,000 unit) capsule (Vitamin D3) metformin 1,000 mg tablet 1,000 mg PO BID #180 tabs 10/21/22 07/12/23 Rx famotidine 20 mg tablet (Pepcid) 20 mg PO BID #180 tabs 11/30/22 07/12/23 Rx fluticasone propionate 50 1 spray intranasal DAILY #48 grams 01/10/23 07/12/23 Rx mcg/actuation nasal spray,suspension glipizide 10 mg tablet, extended 10 mg PO QAM #90 tabs 02/16/23 07/12/23 Rx release 24 hr multivitamin 1 tab PO QAM 03/09/23 07/12/23 History insulin glargine 100 unit/mL (3 25 unit (0.25 mL) subcut QPM #18 mL 05/05/23 07/12/23 Rx mL) subcutaneous pen (Basaglar KwikPen U-100 Insulin) pen needle, diabetic 32 gauge x #100 ea 07/05/23 07/07/23 Rx /32" (BD Ultra-Fine Clotilde Pen Needle) Probiotic 1 cap PO QAM 07/07/23 07/12/23 History omeprazole 20 mg capsule,delayed 20 mg PO QAM 07/07/23 07/12/23 History release simvastatin 20 mg tablet 20 mg PO QPM 07/07/23 07/12/23 History flash glucose scanning reader #1 ea 07/08/23 Rx (FreeStyle Susy 2 [place]) flash glucose sensor (FreeStyle #1 ea 07/08/23 Rx Susy 2 Sensor kit) Past Med/Surg History Medical History Cardiac murmur Echo (done 2020 for murmur evaluation): Mild mitral annular calcification, trace MR/TR Chronic back pain Chronic SI joint pain Diabetes mellitus, type 2 GERD (gastroesophageal reflux disease) Hearing deficit bilateral hearing aids History of colon polyps Lobular carcinoma of left breast 2014- surgery/radiation/oral chemo LUE restriction Migraine Hx Osteoarthritis Seborrheic keratosis Spinal stenosis, lumbar region with neurogenic claudication Surgical History History of cataract surgery R/L History of section History of colonoscopy History of endoscopic sinus surgery History of esophagogastroduodenoscopy (EGD) History of hemorrhoidectomy History of left breast biopsy malignant History of lumpectomy of left breast LUE restriction History of unilateral salpingectomy left History of wisdom tooth extraction Hx of sinus surgery Nausea and vomiting after administration of anesthetic agent many years ago, no issues recently Status post left partial knee replacement Family History Brother Family history of diabetes mellitus Family hx colonic polyps Father Myocardial infarction Other Coronary heart disease No family history of adverse response to anesthesia Denies family history of Ovarian cancer Prostate cancer Breast cancer Colorectal cancer Social History Smoking Status: Never smoker Second Hand Exposure: No; Do You Dip or Chew Tobacco: No; Tobacco Cessation Education Requested by Patient: No Hx Alcohol Use: No Hx Substance Use: No Preferred Language: Hungarian Communication Ability: Effective Visual Impairment: Limited Hearing Ability: Use of Hearing Aid [place] Required: No Beliefs That Will Affect Care: None marital status: Current Living Situation: Spouse current occupational status: retired How many Children do You have: 3 How many Children do You have Comment: 1 child is adopted. Other Information That Helps Us Care for You: No Feels Safe at Home: Yes Safety Concerns: Feels Safe At This Time Childhood Exposure to Second-Hand Smoke: Yes Diet: regular caffeine: No during the past year weight has: remained stable Dental Care, Regularly: Yes Physical Activity Frequency: Does not Exercise Seatbelt Use: always Sunscreen Use: Yes Assistive Devices: Glasses and Hearing Aid - Bilateral Physical Exam Physical Exam: Patient is alert and oriented Heart regular rhythm lungs clear Results & Data Results & Data Vital Signs (Past 12 Hours) Vital Signs Temp Pulse Resp BP Pulse Ox O2 Del Method 07/12/23 06:57 Room Air 07/12/23 06:57 36.6 C 90 18 139/84 97 Room Air
[2023-07-12] MEDS: ceFAZolin 2000MG 2,000 MG/15 ML SYR IV SCH ×2 (07:50→15:12)
[2023-07-12] MEDS: BUPIVACAINE/EPINEPHRINE 0.5% MPF 1:200,000 30 ML VIAL ONE (08:14)
[2023-07-12] MEDS: ceFAZolin 330 MG/ML 1 GM VIAL ONE (08:22)
--- NOTE | 2023-07-12 09:35 | Operative Report ---
Post Operative Report Pre & Post Diagnosis Operation Date: 07/12/23 07:45 Pre-Op Diagnosis: Lumbar spinal stenosis with neurogenic claudication Post-Op Diagnosis: Same I identified the patient and participated in the time-out.: Yes Procedure Operation Date: 07/12/23 07:45 Actual Procedures #1 lumbar decompression bilaterally facetectomies and foraminotomies L2-L3, L3- L4 L4-5. #2 posterior spinal fusion L3-L5. #3 placement of posterior instrumentation L3-L5. #4 interbody fusion L3-L4 L4-5. #5 placement spiral 9 x 26 mm at L3-L4 and L4-5. #6 placement locally harvested morselized autograft and posterior gutters. #7 placement of infuse collagen sponge combined with Koros in the posterior gutters and I factor in the interbody space. Surgeon Ramos Coombs DO Plastic Bubble Packer Shanae Shields Estimated Blood Loss 50 Findings Consistent with Post-Op Diagnosis Specimens None Indications This is a this is an 82-year-old female Description of Procedure Patient was met with preoperative Case discussed questions addressed. Then the patient was taken back to the operative suite underwent patient placed in the prone position ingestible top [place] frame. All bony promises well-padded eyes inspected to ensure no external precipice spine. This point the lumbar spine was prepped and draped in a sterile fashion. Sharp dissection with assistance of Bovie cautery form down to exposing the lamina transverse processes of L3 L4- 5. From caudal assessment fashion complete laminectomy of L4 L3 and partial laminectomy L2 was performed including bilaterally facetectomies and foraminotomies addressing severe spinal stenosis. Pedicle screws then placed at L3 L4-5 bilaterally with assistance of fluoroscopy and proper size minerva placed. By way of transfer approach on the right the discectomy L4-5 was performed endplates guarded to subcortical mean bone and 9 x 26 mm spiral cage with I factor tapped in position. Then proceeded to L3-L4 and again by way of transforaminal approach this time with a left complete discectomy performed endplates guarded to subcortical bleeding bone and again a 9 x 26 mm Spira cage fluid with I factor tapped position. The rods and locked in final position bilaterally. Transverse processes of L3 L4-5 burred to subcortical bleeding bone infuse collagen sponge by mass graft local graft placed in posterior gutters. 15 round PUJA inserted. The incision was then closed with 1 Vicryl fascia 2-0 Vicryl subcutaneously and 4 Monocryl for fascial closure. Steri- Strips sterile dressing placed. Patient waken taken to PACU in stable condition. Please note spinal cord monitoring was utilized at the procedure no changes noted. Lastly Shanae Shields was present at the entire surgery upon the patient positioning complex portion of the surgery and final skin closure. I attest to the content of the Intraoperative Record and any orders documented therein. Any exceptions are noted below.
[2023-07-12] MEDS: fentaNYL citrate PF 100 MCG/2 ML VIAL IV PRN (10:02)
[2023-07-12] MEDS: HYDROmorphone INJ 1 MG/ML SYRINGE IV PRN (10:38)
--- NOTE | 2023-07-12 10:52 | Anesthesiology Progress Note ---
Date of Service July 12, 2023 Anesthesia Post Procedure Vital Signs Vital Signs: Temp Pulse Resp BP Pulse Ox O2 Del Method O2 Flow Rate 07/12/23 10:45 79 18 150/75 H 97 Nasal Cannula 2 07/12/23 10:35 75 18 150/77 H 98 Nasal Cannula 2 07/12/23 10:25 76 16 149/73 H 98 Oxymask 2 07/12/23 10:15 76 17 154/79 H 96 Oxymask 2 07/12/23 10:05 72 16 160/78 H 100 Oxymask 4 07/12/23 09:55 71 17 161/78 H 99 Oxymask 6 07/12/23 09:48 36 C L 76 17 159/74 H 100 Oxymask 6 07/12/23 06:57 Room Air 07/12/23 06:57 36.6 C 90 18 139/84 97 Room Air Pain Intensity Back: Pain Intensity: 6 Transfer of Care Handoff Completed per policy Notes Mental Status: alert / awake / arousable Patient Amnestic to Procedure: Yes Nausea / Vomiting: adequately controlled Pain: adequately controlled Airway Patency, RR, SpO2: stable & adequate BP & HR: stable & adequate Hydration State: stable & adequate Anesthetic Complications: no major complications apparent and Pt Satisfied with anesthetic care
[2023-07-12] MEDS: HYDROmorphone INJ 1 MG/ML SYRINGE ONE (11:01)
[2023-07-12] MEDS ORDERED: traMADol HCL 50 MG TABLET PO PRN (11:28)
[2023-07-12] MEDS ORDERED: LORazepam 0.5 MG in SYRINGE 0.25 ML IV PRN (11:28)
[2023-07-12] MEDS ORDERED: DO NOT ADMINISTER FLU VACCINE PRN (11:28)
[2023-07-12] MEDS ORDERED: PROMETHAZINE HCL 12.5 MG in SODIUM CHLORIDE 0.9% 50 ML IV PRN (11:28)
[2023-07-12] MEDS ORDERED: ONDANSETRON 4 MG OD TAB PO PRN (11:28)
[2023-07-12] MEDS ORDERED: HYDROmorphone INJ 1 MG/ML SYRINGE IV PRN (11:28)
[2023-07-12] MEDS ORDERED: NALOXONE HCL 0.4 MG/1 ML VIAL/CARP IV PRN (11:28)
[2023-07-12] MEDS ORDERED: LORazepam 0.5 MG TAB PO PRN (11:28)
[2023-07-12] MEDS ORDERED: diphenhydrAMINE Capsule 25 MG CAP PO PRN (11:28)
[2023-07-12] MEDS ORDERED: SOD PHOSPHATE/SOD BIPHOSPHATE ENEMA 132 ML BTL PR PRN (11:28)
[2023-07-12] MEDS ORDERED: DO NOT ADMINISTER PNEUMOCOCCAL VACCINE PRN (11:28)
[2023-07-12] MEDS ORDERED: ALUMINUM/MAGNESIUM SUSP 30 ML UDC PO PRN (11:28)
[2023-07-12] MEDS ORDERED: FAMOTIDINE 20 MG TAB PO PRN (11:28)
[2023-07-12] MEDS ORDERED: hydrOXYzine HCl 25 MG TAB PO PRN (11:28)
[2023-07-12] MEDS ORDERED: METOCLOPRAMIDE HCL INJ 5 MG/ML 2 ML VIAL IV PRN (11:28)
[2023-07-12] MEDS ORDERED: DEXTROSE 50% 50 ML SYRINGE IV PRN (12:07)
[2023-07-12] MEDS ORDERED: PHARMACY GLYCEMIC MGMT CONSULT PRN (12:07)
[2023-07-12] MEDS ORDERED: CARBOHYDRATES FOR HYPOGLYCEMIA PO PRN (12:07)
[2023-07-12] MEDS ORDERED: GLUCOSE 10 TAB/TUBE PO PRN (12:07)
[2023-07-12] MEDS ORDERED: GLUCAGON FOR INJ 1 MG VIAL SQ PRN (12:07)
[2023-07-12] MEDS ORDERED: GLUCOSE 40% GEL 15 GM TUBE PO PRN (12:07)
[2023-07-12] MEDS: LACTATED RINGER'S 1,000 ML IV SCH (12:10)
[2023-07-12] MEDS: SODIUM CHLORIDE 0.9% 1,000 ML IV SCH (12:10)
--- NOTE | 2023-07-12 13:23 | Fluoroscopy Report ---
FL lumbar spine 2-3V CLINICAL HISTORY: L3-L5 decompression/fusion COMPARISON STUDY: Lumbar spine MRI June 29, 2022. FLUOROSCOPY TIME: 20.6 seconds. Ka, r: 15.58 mGy FLUOROSCOPIC IMAGES: 2 FINDINGS: Fluoroscopy was provided during L3-L4 and L4-L5 discectomies. Posterior decompression with bilateral pedicle screw fusion from L3 through L5 is noted. Hardware is intact. IMPRESSION: Fluoroscopy provided during L3-L5 decompression and fusion, as above. ACT 112: Negative or not required by law. Electronically signed by: Hair Ross M.D. 07/12/2023 1:09 PM
--- NOTE | 2023-07-12 13:24 | Pharmacy Report ---
Pharmacy Glycemic Short Note 2 - Date of Service July 12, 2023 - Glycemic Short BSG Results (Last 24 hours): 07/12/23 07/12/23 07/12/23 06:49 09:50 11:43 POC Glucose 184 H 188 H 227 H OUTPATIENT ANTIDIABETIC REGIMEN: * Lantus 25 units SC HS * Metformin 1000 mg PO BIDM * Glipizide ER 10 mg AM * HbA1c: 8.4% (07/01/23) ASSESSMENT: * 82 yo F admitted on 07/12/23 postoperatively following spinal surgeon. Pharmacy has been consulted to assist with inpatient glycemic management. Patient is a Type 2 diabetic as an outpatient. Please refer to outpatient regimen and most recent HbA1c above. * Received 4 mg of IV Dexamethasone perioperatively. Ordered a T2DM diet. Will follow to see if patient tolerates diet postop. BSGs were 184 mg/dL this AM and 227 mg/dL following surgery. Patient did report taking Lantus last evening. No ongoing steroids ordered. * Novolog will be started with tight coverage initially given hyperglycemia and steroid use. May be able to back off tomorrow. Will give home dose of Lantus now x 1. Will add an HS basal scale in the event that hyperglycemia persists throughout this evening. Plan to continue HS dosing of basal to match home regimen. PLAN FOR INPATIENT GLYCEMIC CONTROL: * Hold outpatient oral diabetes medications * Basal insulin * Lantus 25 units SC x 1 now * Lantus 0-10 units SC x 1 HS (see eMAR for more details) * Reassess basal dose tomorrow * Bolus insulin * NovoLog per scale ACHS or Q6hrs while NPO * Goal Range: Low 110 mg/dL - High 140 mg/dL * Correction Factor: 15 mg/dL/unit * Nutritional / Prandial insulin per carb ratio of 1 unit per 5 grams CHO consumed
[2023-07-12] MEDS: LANTUS PER UNIT CHARGE SQ STA (13:36)
[2023-07-12] MEDS: INSULIN ASPART PER UNIT CHARGE SC SCH (13:36)
[2023-07-12] MEDS: ACETAMINOPHEN 1,000 MG/100 ML VIAL IV PRN (13:54)
[2023-07-12] MEDS ORDERED: metFORMIN HCL 500 MG TAB PO SCH (17:00)
[2023-07-12] MEDS: HYDROmorphone INJ 0.5 MG/0.5 ML SYR IV PRN (18:45)
--- NOTE | 2023-07-12 19:36 | Hospitalist Consultation ---
Date of Consultation July 12, 2023 Assessment & Plan (1) Type 2 diabetes mellitus: Home regimen held basal bolus, [facility] Pharmacy glycemic consult (2) Acid reflux disease: continue omeprazole, famotidine (3) Hyperlipidemia: Continue simvastatin (4) Chronic sinusitis: continue zyrtec Plan f/u labs Supervising Physician Co-Signing Physician Notes Patient seen and examined, chart reviewed, case discussed with Cassius Singh and I agree with the assessment and plan as above except as otherwise noted Labs and images reviewed Sheeba is seen at bedside and evening on reevaluation. She is sleeping comfortably, awakens easily, and goes back to sleep shortly after bedside visit. No acute concerns. Denies pain symmetrical chest rise. Agree with assessment and management above. She is on home Lantus 25 units, this is continued with sliding scale insulin while inpatient. Agree with management of chronic medications as above History of Present Illness Reason for Consultation: Medical management Requesting Physician: Ramos Coombs DO Attending Physician: Ramos Coombs DO History of Present Illness 82 yo female s/p lumbar decompression/fusion. Consulted for management of medical conditions. PMHx T2DM, GERD, HLD, arthritis, chronic sinusitis. No preoperative labs drawn. Patient seen and evaluated at bedside. Complains of pain in at the surgical site after sitting in a chair for 3 hours. Appropriately controlled with current pain regimen. Patient denies CP, SOB, abdominal pain, nausea, vomiting, diarrhea. Allergies Allergy/AdvReac Type Severity Reaction Status Date / Time doxycycline Allergy Severe HIVES Verified 07/12/23 06:51 Home Medications Medication Instructions Recorded Confirmed Type anastrozole 1 mg tablet (Arimidex) 1 mg PO QAM 07/28/18 07/12/23 History magnesium chloride 71.5 mg 1 tab PO BID 07/28/18 07/12/23 History (magnesium chloride) tablet,delayed release (Slow-Mag) calcium carbonate 600 mg-vitamin 1 tab PO BID 02/20/19 07/12/23 History D3 20 mcg (800 unit) chewable tablet (Caltrate 600 plus D) cetirizine 10 mg tablet (Zyrtec) 10 mg PO QAM 02/20/19 07/12/23 History conjugated estrogens 0.625 mg/gram 0.625 mg vaginal UD 02/20/19 07/12/23 History vaginal cream (Premarin) acetaminophen 650 mg 1,300 mg PO Q8H PRN Pain 02/20/21 07/12/23 History tablet,extended release cholecalciferol (vitamin D3) 25 25 mcg PO QPM 02/20/21 07/12/23 History mcg (1,000 unit) capsule (Vitamin D3) metformin 1,000 mg tablet 1,000 mg PO BID #180 tabs 10/21/22 07/12/23 Rx famotidine 20 mg tablet (Pepcid) 20 mg PO BID #180 tabs 11/30/22 07/12/23 Rx fluticasone propionate 50 1 spray intranasal DAILY #48 grams 01/10/23 07/12/23 Rx mcg/actuation nasal spray,suspension glipizide 10 mg tablet, extended 10 mg PO QAM #90 tabs 02/16/23 07/12/23 Rx release 24 hr multivitamin 1 tab PO QAM 03/09/23 07/12/23 History insulin glargine 100 unit/mL (3 25 unit (0.25 mL) subcut QPM #18 mL 05/05/23 07/12/23 Rx mL) subcutaneous pen (Discoverlyaglar KwikPen U-100 Insulin) pen needle, diabetic 32 gauge x #100 ea 07/05/23 07/07/23 Rx 5/32" (BD Ultra-Fine Clotilde Pen Needle) Probiotic 1 cap PO QAM 07/07/23 07/12/23 History omeprazole 20 mg capsule,delayed 20 mg PO QAM 07/07/23 07/12/23 History release simvastatin 20 mg tablet 20 mg PO QPM 07/07/23 07/12/23 History flash glucose scanning reader #1 ea 07/08/23 Rx (FreeStyle Susy 2 [place]) flash glucose sensor (FreeStyle #1 ea 07/08/23 Rx Susy 2 Sensor kit) Patient History Medical History (Updated 07/12/23 @ 19:41 by Cassius Singh DO) Chronic sinusitis Diabetes mellitus, type 2 Chronic SI joint pain Spinal stenosis, lumbar region with neurogenic claudication Osteoarthritis GERD (gastroesophageal reflux disease) Migraine Hx Cardiac murmur Echo (done 2020 for murmur evaluation): Mild mitral annular calcification, trace MR/TR Seborrheic keratosis History of colon polyps Chronic back pain Hearing deficit bilateral hearing aids Lobular carcinoma of left breast 2014- surgery/radiation/oral chemo LUE restriction Surgical History Hx of sinus surgery Nausea and vomiting after administration of anesthetic agent many years ago, no issues recently History of cataract surgery R/L History of hemorrhoidectomy History of unilateral salpingectomy left History of section Status post left partial knee replacement History of colonoscopy History of esophagogastroduodenoscopy (EGD) History of left breast biopsy malignant History of lumpectomy of left breast LUE restriction History of wisdom tooth extraction History of endoscopic sinus surgery Family History Brother Family history of diabetes mellitus Family hx colonic polyps Father Myocardial infarction Other Coronary heart disease No family history of adverse response to anesthesia Denies family history of Ovarian cancer Prostate cancer Breast cancer Colorectal cancer Social History Smoking Status: Never smoker Second Hand Exposure: No; Do You Dip or Chew Tobacco: No; Tobacco Cessation Education Requested by Patient: No Hx Alcohol Use: No Hx Substance Use: No Preferred Language: Estonian Communication Ability: Effective Visual Impairment: Limited Hearing Ability: Use of Hearing Aid Vacuum Extractor Operator Required: No Beliefs That Will Affect Care: None marital status: Current Living Situation: Spouse current occupational status: retired How many Children do You have: 3 How many Children do You have Comment: 1 child is adopted. Other Information That Helps Us Care for You: No Feels Safe at Home: Yes Safety Concerns: Feels Safe At This Time Childhood Exposure to Second-Hand Smoke: Yes Diet: regular caffeine: No during the past year weight has: remained stable Dental Care, Regularly: Yes Physical Activity Frequency: Does not Exercise Seatbelt Use: always Sunscreen Use: Yes Assistive Devices: Glasses and Hearing Aid - Bilateral Review of Systems Review of Systems: reviewed, per HPI Physical Exam Physical Exam: Constitutional: no acute distress, in mild-moderate pain HEENT: NCAT, no conjunctival injection CV: regular rhythm, no murmur appreciated, extremities well-perfused, no LE edema, appears euvolemic Resp: CTABL, no wheezes/rales/rhonchi appreciated, no increased work of breathing GI: soft, nondistended, nontender MSK: no gross deformities appreciated Skin: warm, dry, no rash appreciated, incision site not inspected due to patient positioning and pain Neuro: alert, oriented, no focal neurologic deficit appreciated Results & Data Results & Data Vital Signs (Past 12 Hours) Vital Signs Temp Pulse Pulse Pulse Resp BP Pulse Ox 07/12/23 14:26 36.9 C 100 H 16 119/66 97 07/12/23 13:30 101 H 16 139/73 96 07/12/23 12:30 36.5 C 75 16 132/71 98 07/12/23 11:58 36.8 C 79 16 139/63 96 07/12/23 11:38 07/12/23 11:30 36.8 C 75 16 138/65 96 07/12/23 11:09 76 15 128/70 97 07/12/23 10:55 36.5 C 75 20 137/74 96 07/12/23 10:45 79 18 150/75 H 97 07/12/23 10:35 75 18 150/77 H 98 07/12/23 10:25 76 16 149/73 H 98 07/12/23 10:15 76 17 154/79 H 96 07/12/23 10:05 72 16 160/78 H 100 07/12/23 09:55 71 17 161/78 H 99 07/12/23 09:48 36 C L 76 17 159/74 H 100 O2 Del Method O2 Flow Rate 07/12/23 14:26 Nasal Cannula 2 07/12/23 13:30 Nasal Cannula 2 07/12/23 12:30 Room Air 07/12/23 11:58 Nasal Cannula 2 07/12/23 11:38 Nasal Cannula 2 07/12/23 11:30 Room Air 2 07/12/23 11:09 Nasal Cannula 2 07/12/23 10:55 Nasal Cannula 2 07/12/23 10:45 Nasal Cannula 2 07/12/23 10:35 Nasal Cannula 2 07/12/23 10:25 Oxymask 2 07/12/23 10:15 Oxymask 2 07/12/23 10:05 Oxymask 4 07/12/23 09:55 Oxymask 6 07/12/23 09:48 Oxymask 6 (1) Type 2 diabetes mellitus Diabetes mellitus complication status: without complication Diabetes mellitus miner placer insulin use: with miner placer use Qualified Code(s): E11.9 - Type 2 diabetes mellitus without complications; Z79.4 - USP (current) use of insulin (2) Acid reflux disease Esophagitis presence: without esophagitis Qualified Code(s): K21.9 - Gastro- esophageal reflux disease without esophagitis (3) Hyperlipidemia Hyperlipidemia type: mixed hyperlipidemia Qualified Code(s): E78.2 - Mixed hyperlipidemia (4) Chronic sinusitis Sinusitis location: pansinusitis Qualified Code(s): J32.4 - Chronic pansinusitis
[2023-07-12] MEDS: SIMVASTATIN 20 MG TAB PO SCH (20:44)
[2023-07-12] MEDS: CALCIUM 600MG + VIT D 400 IU TAB PO SCH (20:44)
[2023-07-12] MEDS: DOCUSATE SODIUM/SENNA 50/8.6MG TAB PO SCH (20:44)
[2023-07-12] MEDS: FAMOTIDINE 20 MG TAB PO SCH (20:44)
[2023-07-12] MEDS: CHOLECALCIFEROL 25 MCG (1000 UNITS) TAB PO SCH (20:44)
[2023-07-12] MEDS: MAGNESIUM CHLORIDE W/CALCIUM 64MG DELAYED REL TAB PO SCH (20:44)
[2023-07-12] MEDS: LANTUS PER UNIT CHARGE SC ONE (20:45)
[2023-07-12 20:47] LABS: Basophils # (auto) 0.02 K/uL (0.00-0.20); Basophils % (auto) 0.3 %; Eosinophils # (auto) 0.01 K/uL (0.00-0.50); Eosinophils % (auto) 0.1 %; Hematocrit (blood only) 30.4 % (37.0-47.0); Hemoglobin 9.8 g/dl (12.0-16.0); Immature Granulocytes # (auto) 0.04 K/uL (0.01-0.20); Immature Granulocytes % (auto) 0.6 %; Lymphocytes # (auto) 1.72 K/uL (1.20-3.40); Mean Corpuscular Hemoglobin 28.4 pg (25.0-34.0); Mean Corpuscular Hgb Conc 32.2 g/dL (32.0-36.0); Mean Corpuscular Volume 88.1 fL (80.0-100.0); Mean Platelet Volume 10.6 fL (9.4-12.4); Monocytes # (auto) 0.51 K/uL (0.11-0.59); Monocytes % (auto) 7.4 %; Neutrophils # (auto) 4.59 K/uL (1.40-6.50); Neutrophils % (auto) 66.6 %; Platelet Count 167 K/uL (130-400); RDW Coefficient of Variation 13.4 % (11.5-14.5); RDW Standard Deviation 42.7 fL (36.4-46.3); Red Blood Count 3.45 M/uL (4.20-5.40); White Blood Count 6.89 K/ul (4.8-10.8)
[2023-07-12] MEDS ORDERED: LANTUS PER UNIT CHARGE SQ SCH (21:00)
[2023-07-12 21:03] LABS: Albumin Globulin Ratio 1.5 (0.9-2); Albumin Level 3.4 gm/dl (3.4-5.0); BUN Creatinine Ratio 14.6 (10-20); Bilirubin,Total 0.3 mg/dl (0.2-1.0); Calcium 8.1 mg/dl (8.6-10.3); Creatinine Clr Calc Pharmacy 44.8 ml/min; Est GFR (Non-African American) 60.4 ml/min; Globulin 2.3 gm/dl (2.5-4.0); Magnesium 1.3 mg/dl (1.7-2.4); Phosphorus 3.7 mg/dl (2.5-4.9); Potassium 4.5 mmol/L (3.5-5.1); Total Protein 5.7 gm/dl (6.0-8.3)
[2023-07-13] MEDS: POLYETHYLENE (MIRALAX) 17 GM PACK PO SCH (05:55)
[2023-07-13 07:09] LABS: Basophils # (auto) 0.03 K/uL (0.00-0.20); Basophils % (auto) 0.4 %; Eosinophils # (auto) 0.08 K/uL (0.00-0.50); Hematocrit (blood only) 32.1 % (37.0-47.0); Hemoglobin 10.3 g/dl (12.0-16.0); Immature Granulocytes # (auto) 0.03 K/uL (0.01-0.20); Immature Granulocytes % (auto) 0.4 %; Lymphocytes # (auto) 3.04 K/uL (1.20-3.40); Lymphocytes % (auto) 38.7 %; Mean Corpuscular Hemoglobin 28.5 pg (25.0-34.0); Mean Corpuscular Hgb Conc 32.1 g/dL (32.0-36.0); Mean Corpuscular Volume 88.9 fL (80.0-100.0); Mean Platelet Volume 10.3 fL (9.4-12.4); Monocytes # (auto) 0.59 K/uL (0.11-0.59); Monocytes % (auto) 7.5 %; Neutrophils # (auto) 4.09 K/uL (1.40-6.50); Platelet Count 175 K/uL (130-400); RDW Coefficient of Variation 13.3 % (11.5-14.5); RDW Standard Deviation 43.5 fL (36.4-46.3); Red Blood Count 3.61 M/uL (4.20-5.40); White Blood Count 7.86 K/ul (4.8-10.8)
[2023-07-13 07:25] LABS: BUN Creatinine Ratio 17.9 (10-20); Calcium 8.1 mg/dl (8.6-10.3); Creatinine Clr Calc Pharmacy 59.5 ml/min; Est GFR (African American) 94.9 ml/min; Est GFR (Non-African American) 81.9 ml/min; Potassium 3.8 mmol/L (3.5-5.1)
[2023-07-13] MEDS: CETIRIZINE HCL 10 MG TABLET PO SCH (08:10)
[2023-07-13] MEDS: MULTIVITAMIN TAB PO SCH (08:10)
[2023-07-13] MEDS: ANASTROZOLE 1 MG TAB PO SCH (08:10)
[2023-07-13] MEDS: PANTOprazole 40 MG TAB PO SCH (08:10)
[2023-07-13] MEDS: FLUTICASONE PROPIONATE NA SPR 16 GM BTL SCH (08:15)
[2023-07-13] MEDS: oxyCODONE HCL IR 5 MG TAB (IMMEDIATE RELEASE) PO PRN (08:50)
[2023-07-13] MEDS ORDERED: Nursing to Pharmacy Communication SCH (09:00)
[2023-07-13] MEDS ORDERED: NON-FORMULARY MEDICATION (Glipizide 10 mg tablet extended release 24hr) PO SCH (09:00)
[2023-07-13] MEDS: PREMARIN VAG CRM 14 APPLN/30 GM TUBE PV SCH (09:14)
[2023-07-13] MEDS: LANTUS PER UNIT CHARGE SQ SCH (09:30)
[2023-07-13] MEDS: MAGNESIUM SULFATE / D5W 1 GM/100 ML BAG IV SCH (09:33)
--- NOTE | 2023-07-13 14:46 | Orthopedic Progress Note ---
Date of Service July 13, 2023 Assessment & Plan (1) Neurogenic claudication due to lumbar spinal stenosis: Plan: At this time we will continue physical therapy monitor PUJA output anticipate discharge home in the next few days. Admission and Anticipated Discharge Date Admission Date: July 12, 2023 Subjective Back pain controlled leg pain markedly improved Physical Exam Physical Exam: Patient is in bed at this time. She is comfortable. Has good strength testing. Results & Data Vital Signs (Past 12 Hours) Vital Signs Temp Pulse Pulse Pulse Resp BP Pulse Ox 07/13/23 14:23 37 C 90 18 130/60 94 07/13/23 07:40 37.1 C 92 H 92 H 18 124/67 96 07/13/23 07:05 37.9 C H 90 18 124/65 93 07/13/23 02:55 37 C 90 18 132/66 94 O2 Del Method 07/13/23 14:23 Room Air 07/13/23 07:40 Room Air 07/13/23 07:05 Room Air 07/13/23 02:55 Room Air Queries Orthopedic Spine Acute Posthemorrhagic Anemia: Yes
--- NOTE | 2023-07-13 16:00 | Hospitalist Progress Note ---
Date of Service July 13, 2023 Assessment & Plan (1) Lumbar stenosis: Plan: Postoperative day #1 after fusion with instrumentation and grafting. Orthopedic spine management. (2) Acute blood loss anemia: Plan: Serial labs. No transfusion needed. (3) Type 2 diabetes mellitus: Plan: ADA diet. Lantus basal insulin therapy. Sliding scale coverage as needed. (4) Acid reflux disease: Plan: Stable. Continue omeprazole, famotidine (5) Hyperlipidemia: Plan: Stable. Continue simvastatin (6) Hypomagnesemia: Plan: Parenteral supplementation. Serial labs Plan Eventual discharge per primary Admission and Anticipated Discharge Date Admission Date: July 12, 2023 Subjective Alert and oriented. No distress. Postoperative day 1 after lumbar fusion with instrumentation and grafting. Magnesium replacement underway. Glipizide will be discontinued permanently in this age group since she is already on Lantus and metformin. Hemoglobin 10.3 and improved from yesterday. Baseline is 12-13. Review of Systems 2 Review of Systems: Constitutional-no fever or chills ENT-no blurred vision, no double vision, no epistaxis, no sore throat Respiratory-no cough, no wheezing, no shortness of breath Cardiac-no palpitations, no chest pain, no syncope GI-no nausea, vomiting, diarrhea, melena, hematochezia -no urinary retention, no urinary incontinence, no dysuria, no hematuria Musculoskeletal-postoperative lumbar pain as expected with limited range of motion Skin-no bruising, no rashes, no pruritus Neuro-no isolated weakness, no paresthesia Psych-no depression, no anxiety Physical Exam 2 Physical Exam: General-alert and oriented x3, no fever, no chills HEENT-head atraumatic and normocephalic, pupils equal and reactive to light, extraocular muscles intact Neck-no lymphadenopathy or thyromegaly, trachea midline Chest-clear to auscultation. No rales, wheezing or rhonchi Cardiac-regular rate and rhythm, normal S1 and S2 Abdomen-normal bowel sounds, nontender, no hepatosplenomegaly Musculoskeletallumbar surgical site clean and dry. Postoperative discomfort as expected. Limited range of motion as expected Extremities-no cyanosis, clubbing, or edema Neuro-cranial nerves II through XII intact, motor and sensory function within normal limits, strength symmetrical, no focal deficits Psych-normal affect, normal mood Results & Data Results & Data Vital Signs (Past 12 Hours) Vital Signs Temp Pulse Pulse Pulse Resp BP Pulse Ox 07/13/23 14:23 37 C 90 18 130/60 94 07/13/23 07:40 37.1 C 92 H 92 H 18 124/67 96 07/13/23 07:05 37.9 C H 90 18 124/65 93 O2 Del Method 07/13/23 14:23 Room Air 07/13/23 07:40 Room Air 07/13/23 07:05 Room Air Laboratory Results 07/13/23 06:41 07/13/23 06:41 PG Care Time/CCT Total # of Minutes Spent Total Time Spent with Patient: Total time spent is greater than 50% in coordination of care (as documented) at patient's floor/unit and/or counseling patient: Coding Level of Care Code 26616 SUB INP/OBS CARE 3/50MIN Diagnoses Lumbar stenosis M48.061 Acute blood loss anemia D62 Type 2 diabetes mellitus without complication, with long-term current use of insulin E11.9; Z79.4 Diabetes mellitus ocean transportation intermediary insulin use: with skilled nursing use Diabetes mellitus complication status: without complication Gastroesophageal reflux disease without esophagitis K21.9 Esophagitis presence: without esophagitis Mixed hyperlipidemia E78.2 Hyperlipidemia type: mixed hyperlipidemia Hypomagnesemia E83.42 (3) Type 2 diabetes mellitus Diabetes mellitus ocean transportation intermediary insulin use: with skilled nursing use Diabetes mellitus complication status: without complication Qualified Code(s): E11.9 - Type 2 diabetes mellitus without complications; Z79.4 - nursing home (current) use of insulin (4) Acid reflux disease Esophagitis presence: without esophagitis Qualified Code(s): K21.9 - Gastro- esophageal reflux disease without esophagitis (5) Hyperlipidemia Hyperlipidemia type: mixed hyperlipidemia Qualified Code(s): E78.2 - Mixed hyperlipidemia
--- NOTE | 2023-07-13 17:25 | XRay Report ---
XR chest 1V portable HISTORY: 82 years-old Female fever acute fever COMPARISON: 07/01/2023, chest CT 08/27/2008. TECHNIQUE: AP view of the chest FINDINGS: Cardiac silhouette is enlarged. Surgical clip project over the left hilum. Unchanged asymmetric right hilar prominence. No pneumothorax, pleural effusion, airspace consolidation or pulmonary edema. Bone s appear grossly intact. IMPRESSION: No acute process. ACT 112: Negative or not required by law. The above report was generated using voice recognition software. It may contain grammatical, syntax o r spelling errors. Electronically signed by: Ramsey Turner M.D. 07/13/2023 5:24 PM
[2023-07-13 20:54] LABS: Appearance Urine Clear (Clear); Bacteria Urine Automated Negative (Negative); Bilirubin Urine Negative (Negative); Blood Urine Negative (Negative); Color Urine Yellow; Epithelial Cell Urine Auto >30 /lpf (0-5); Glucose Urine UA 2+ (Negative); Ketones Urine Negative (Negative); Leukocyte Esterase Urine 1+ (Negative); Nitrite Urine Negative (Negative); Protein Urine Negative (Negative); RBC Urine Automated 0-4 /hpf (0-4); Specific Gravity Urine 1.011 (1.000-1.030); Urobilinogen Urine Negative (Negative); pH Urine 6.5 (4.5-7.5)
[2023-07-13] MEDS: ACETAMINOPHEN 500 MG TAB PO PRN (21:12)
[2023-07-14] MEDS: ACETAMINOPHEN 500 MG TAB PO SCH (05:16)
[2023-07-14 07:32] LABS: Basophils # (auto) 0.03 K/uL (0.00-0.20); Basophils % (auto) 0.4 %; Eosinophils % (auto) 1.4 %; Hematocrit (blood only) 31.4 % (37.0-47.0); Hemoglobin 10.3 g/dl (12.0-16.0); Immature Granulocytes # (auto) 0.03 K/uL (0.01-0.20); Immature Granulocytes % (auto) 0.4 %; Lymphocytes # (auto) 2.39 K/uL (1.20-3.40); Lymphocytes % (auto) 33.3 %; Mean Corpuscular Hemoglobin 29.3 pg (25.0-34.0); Mean Corpuscular Hgb Conc 32.8 g/dL (32.0-36.0); Mean Corpuscular Volume 89.2 fL (80.0-100.0); Mean Platelet Volume 10.6 fL (9.4-12.4); Monocytes # (auto) 0.66 K/uL (0.11-0.59); Monocytes % (auto) 9.2 %; Neutrophils # (auto) 3.97 K/uL (1.40-6.50); Neutrophils % (auto) 55.3 %; Platelet Count 157 K/uL (130-400); RDW Coefficient of Variation 13.4 % (11.5-14.5); RDW Standard Deviation 44.1 fL (36.4-46.3); Red Blood Count 3.52 M/uL (4.20-5.40); White Blood Count 7.18 K/ul (4.8-10.8)
[2023-07-14 07:53] LABS: BUN Creatinine Ratio 18.6 (10-20); Calcium 8.5 mg/dl (8.6-10.3); Creatinine Clr Calc Pharmacy 56.9 ml/min; Est GFR (African American) 93.5 ml/min; Est GFR (Non-African American) 80.7 ml/min; Magnesium 1.6 mg/dl (1.7-2.4); Potassium 4.6 mmol/L (3.5-5.1)
[2023-07-14] MEDS: PREMARIN VAG CRM 14 APPLN/30 GM TUBE PV SCH (08:06)
--- NOTE | 2023-07-14 08:53 | Orthopedic Progress Note ---
Date of Service July 14, 2023 Assessment & Plan (1) Neurogenic claudication due to lumbar spinal stenosis: Plan: At this time continue physical therapy monitor PUJA output anticipate discharge home tomorrow. Admission and Anticipated Discharge Date Admission Date: July 12, 2023 Subjective Back pain controlled leg pain improved Physical Exam Physical Exam: Patient is in the chair at the bedside. She is comfortable. Is consented testing. Results & Data Vital Signs (Past 12 Hours) Vital Signs Temp Pulse Pulse Resp BP Pulse Ox O2 Del Method 07/14/23 07:10 36.9 C 92 H 16 128/68 95 Room Air 07/13/23 23:46 36.8 C 07/13/23 22:35 38.2 C H 07/13/23 21:33 Room Air 07/13/23 21:10 39.4 C H 95 H 20 145/68 H 96 Room Air Queries Orthopedic Spine Acute Posthemorrhagic Anemia: Yes
[2023-07-14] MEDS ORDERED: GLUCAGON FOR INJ 1 MG VIAL SQ PRN (10:27)
[2023-07-14] MEDS ORDERED: DEXTROSE 50% 50 ML SYRINGE IV PRN (10:27)
[2023-07-14] MEDS ORDERED: GLUCOSE 40% GEL 15 GM TUBE PO PRN (10:27)
[2023-07-14] MEDS ORDERED: CARBOHYDRATES FOR HYPOGLYCEMIA PO PRN (10:27)
[2023-07-14] MEDS ORDERED: GLUCOSE 10 TAB/TUBE PO PRN (10:27)
[2023-07-14] MEDS: LANTUS PER UNIT CHARGE SQ STA (11:08)
[2023-07-14] MEDS: MAGNESIUM SULFATE / D5W 1 GM/100 ML BAG IV SCH (11:33)
[2023-07-14] MEDS: metFORMIN HCL 500 MG TAB PO SCH (12:51)
--- NOTE | 2023-07-14 16:17 | Hospitalist Progress Note ---
Date of Service July 14, 2023 Assessment & Plan (1) Lumbar stenosis: Plan: Postoperative day #2 after fusion with instrumentation and grafting. Orthopedic spine management. (2) Acute blood loss anemia: Plan: Serial labs. No transfusion needed so far (3) Type 2 diabetes mellitus: Plan: ADA diet. Lantus basal insulin therapy uptitrated today, July 14. Metformin has been restarted also today, July 14. Sliding scale coverage as needed. (4) Acid reflux disease: Plan: Stable. Continue omeprazole, famotidine (5) Hyperlipidemia: Plan: Stable. Continue simvastatin (6) Hypomagnesemia: Plan: Parenteral supplementation continues. Serial labs Plan Eventual discharge per primary service. Probably tomorrowJuly 15 Admission and Anticipated Discharge Date Admission Date: July 12, 2023 Subjective Alert and oriented. No complaints. Lantus dosage uptitrated today, July 14, and metformin has been restarted. Glucose is running high. Parenteral magnesium replacement again today, July 15. Glipizide should be discontinued permanently in this age group. Postoperative day #2. Orthopedic spine entry noted. Probably home tomorrowJuly 15 Review of Systems 2 Review of Systems: Constitutional-no fever or chills ENT-no blurred vision, no double vision, no epistaxis, no sore throat Respiratory-no cough, no wheezing, no shortness of breath Cardiac-no palpitations, no chest pain, no syncope GI-no nausea, vomiting, diarrhea, melena, hematochezia -no urinary retention, no urinary incontinence, no dysuria, no hematuria Musculoskeletal-postoperative lumbar pain as expected with limited range of motion Skin-no bruising, no rashes, no pruritus Neuro-no isolated weakness, no paresthesia Psych-no depression, no anxiety Physical Exam 2 Physical Exam: General-alert and oriented x3, no fever, no chills HEENT-head atraumatic and normocephalic, pupils equal and reactive to light, extraocular muscles intact Neck-no lymphadenopathy or thyromegaly, trachea midline Chest-clear to auscultation. No rales, wheezing or rhonchi Cardiac-regular rate and rhythm, normal S1 and S2 Abdomen-normal bowel sounds, nontender, no hepatosplenomegaly Musculoskeletallumbar surgical site clean and dry. Postoperative discomfort as expected. Limited range of motion as expected Extremities-no cyanosis, clubbing, or edema Neuro-cranial nerves II through XII intact, motor and sensory function within normal limits, strength symmetrical, no focal deficits Psych-normal affect, normal mood Results & Data Results & Data Vital Signs (Past 12 Hours) Vital Signs Temp Pulse Pulse Pulse Resp BP Pulse Ox 07/14/23 16:00 36.7 C 90 18 147/76 H 96 07/14/23 12:57 96 07/14/23 11:27 37.1 C 84 16 135/79 94 07/14/23 07:10 36.9 C 92 H 16 128/68 95 O2 Del Method 07/14/23 16:00 Room Air 07/14/23 12:57 07/14/23 11:27 Room Air 07/14/23 07:10 Room Air Laboratory Results 07/14/23 06:22 07/14/23 06:22 PG Care Time/CCT Total # of Minutes Spent Total Time Spent with Patient: Total time spent is greater than 50% in coordination of care (as documented) at patient's floor/unit and/or counseling patient: Coding Level of Care Code 85837 SUB INP/OBS CARE 3/50MIN Diagnoses Lumbar stenosis M48.061 Acute blood loss anemia D62 Type 2 diabetes mellitus without complication, with long-term current use of insulin E11.9; Z79.4 Diabetes mellitus buttermaker insulin use: with custodial use Diabetes mellitus complication status: without complication Gastroesophageal reflux disease without esophagitis K21.9 Esophagitis presence: without esophagitis Mixed hyperlipidemia E78.2 Hyperlipidemia type: mixed hyperlipidemia Hypomagnesemia E83.42 (3) Type 2 diabetes mellitus Diabetes mellitus custodial insulin use: with buttermaker use Diabetes mellitus complication status: without complication Qualified Code(s): E11.9 - Type 2 diabetes mellitus without complications; Z79.4 - terminal superintendent (current) use of insulin (4) Acid reflux disease Esophagitis presence: without esophagitis Qualified Code(s): K21.9 - Gastro- esophageal reflux disease without esophagitis (5) Hyperlipidemia Hyperlipidemia type: mixed hyperlipidemia Qualified Code(s): E78.2 - Mixed hyperlipidemia
[2023-07-14] MEDS: LANTUS PER UNIT CHARGE SQ SCH (20:57)
[2023-07-14] MEDS: MAGNESIUM HYDROXIDE SUSP 30 ML UDC PO PRN (23:16)
[2023-07-15 07:41] LABS: Basophils # (auto) 0.03 K/uL (0.00-0.20); Basophils % (auto) 0.4 %; Eosinophils # (auto) 0.06 K/uL (0.00-0.50); Eosinophils % (auto) 0.8 %; Hematocrit (blood only) 30.8 % (37.0-47.0); Hemoglobin 10.4 g/dl (12.0-16.0); Immature Granulocytes # (auto) 0.02 K/uL (0.01-0.20); Immature Granulocytes % (auto) 0.3 %; Lymphocytes # (auto) 2.38 K/uL (1.20-3.40); Lymphocytes % (auto) 31.8 %; Mean Corpuscular Hemoglobin 29.1 pg (25.0-34.0); Mean Corpuscular Hgb Conc 33.8 g/dL (32.0-36.0); Mean Platelet Volume 10.7 fL (9.4-12.4); Monocytes # (auto) 0.57 K/uL (0.11-0.59); Monocytes % (auto) 7.6 %; Neutrophils # (auto) 4.43 K/uL (1.40-6.50); Neutrophils % (auto) 59.1 %; Platelet Count 177 K/uL (130-400); RDW Coefficient of Variation 13.4 % (11.5-14.5); RDW Standard Deviation 41.9 fL (36.4-46.3); Red Blood Count 3.58 M/uL (4.20-5.40); White Blood Count 7.49 K/ul (4.8-10.8)
[2023-07-15 08:10] LABS: BUN Creatinine Ratio 20.6 (10-20); Calcium 8.7 mg/dl (8.6-10.3); Creatinine Clr Calc Pharmacy 63.3 ml/min; Est GFR (African American) 96.8 ml/min; Est GFR (Non-African American) 83.5 ml/min; Magnesium 1.8 mg/dl (1.7-2.4); Potassium 4.5 mmol/L (3.5-5.1)
--- NOTE | 2023-07-15 10:29 | Discharge Summary ---
Date of Service July 15, 2023 Admission HPI Per Admitting Provider This is a 82-year-old female who presents with persistent back and leg pain a failed extensive course of nonoperative care is here for surgical invention. Principal Diagnosis Lumbar spinal stenosis with neurogenic claudication Discharge Data Allergies Allergy/AdvReac Type Severity Reaction Status Date / Time doxycycline Allergy Severe HIVES Verified 07/12/23 06:51 Consultations 07/12/23 11:28 Consult Hospitalist Routine Procedures Performed Operation Date: 07/12/23 07:45 Actual Procedures p L3-L5 Decompression and Fusion, Spinal Cord Monitoring(Not Applicable) - Ramos Coombs DO Ordered Studies 07/12/23 07:00 [place] lumbar spine 2-3V Routine Hospital Course (1) Neurogenic claudication due to lumbar spinal stenosis: Patient with multilevel lumbar decompression fusion tolerated as well as taken t o orthopedic floor postoperatively postop patient progressed appropriately PUJA drain decreasing well. Extra strength testing. Pain well-controlled. Subsidy discharged home. Discharge orders instructions from the chart for further review. Total Time Total Time Spent Total Time Spent (In Minutes): 20 minutes Discharge Plan Discharge Items Patient Disposition: Home - Self-Care Reason For Visit: Lumbaor Foraminal Stenosis - Lumbar Spondylosis Discharge Diagnosis: Lumbar spinal stenosis with neurogenic claudication Activity: As commented below Non-emergency contact: Primary Care Provider Call non-emergency contact if: you have any medication questions Follow-up/Referrals: Ruth Barnett MD [Primary Care Provider] - Diet: Regular Addtl Attending Provider Instructions: ACTIVITY RECOMMENDATIONS: SELF CARE INSTRUCTIONS AFTER THORACIC/LUMBAR FUSIONS 1. You may walk to your tolerance. It is good exercise for your legs and back. Expect some back and intermittent leg aches and pains. 2. You may perform "counter-top" level activities (make a sandwich, anibal with a project, etc.). 3. No bending or lifting of more than 10 pounds or back twisting of any nature (roll like a log when turning in bed). 4. You may ride in a car for 20-30 minutes at a time. No driving until after your first visit with your doctor. 5. Frequent changes of position and restricting sitting to 30 minutes at a time will help limit the amount of back spasms and stiffness you may experience. 6. You may discontinue the use of ambulatory aids (cane, crutches, etc.) once your strength and confidence allow. 7. You may help desk intern the shower and let water strike your incision when you arrive home at least once daily. Do not take a tub bath, sit in a hot tub or go into a swimming pool until after your first recheck in the office. SPECIAL CARE INSTRUCTIONS: VERY IMPORTANT TO READ AND REVIEW A. Your surgical incision has been closed with a cosmetic suture under the skin that will dissolve in about 6 weeks. In 14 days, you can use a pair of clean scissors and cut the suture that is left outside of the skin at the ends of your incision. 1. The small skin tapes can be removed 7 days after surgery if they have not fallen off by that point. 2. You may keep the wound open to air as much as possible to promote healing after post-op day number 5 unless told otherwise by your doctor. 3. If you think the wound looks like it is becoming infected (redness or worsening drainage) and/or you are experiencing fever, chill or worsening back pain and muscle spasms, contact the office so that we may evaluate you as soon as possible. B. Complications are uncommon, but please contact us if you have any signs or symptoms of: 1. wound infection (fever higher than 102.5 degrees F, redness, separation of wound, drainage, or increasing pain from the incision) 2. blood clots in legs (pain, swelling, redness and warmth in legs) 3. urinary tract infection (fever higher than 102.5 degrees F, burning upon urination or increased frequency of urination) 4. nerve problems (inability to walk on your toes or heels, numbness, loss of bowel or bladder control) 5. any other symptoms that concern you C. Please call the office at if you have any concerns or questions about your operation or recovery. D. No smoking! Smoking drastically decreases the chance of a solid fusion. E. Do not take any anti-inflammatory medications (Indocin, Advil, Motrin, Aspirin, Naprosyn, etc.) as these may inhibit the chance of a solid fusion. Tylenol is okay to take for pain. MANAGING PAIN AFTER SPINAL SURGERY 1. Narcotic medication is intended for short-term use and will be provided for surgical pain. Surgical pain usually lasts for a period of 4-6 weeks. Narcotic medication includes Percocet, Vicodin, Darvocet, Tylenol #3 or Lortab. 2. Longer-term pain is more appropriately treated with non-narcotic medication such as Tylenol ES. 3. Muscle spasm is not appropriately treated with narcotics. Muscle relaxers such as Soma, Flexeril or Skelaxin can be used along with Tylenol ES. 4. Remember that we all live with some "aches and pains". This is not unusual or uncommon after an injury or as we get older. a. Back pain is expected and may include muscle spasms for 4 to 6 weeks after surgery. The pain should gradually improve. If the pain worsens for no apparent reason, please contact the office. b. Intermittent leg pain may also be experienced and should not be concerned about unless it worsens for no apparent reason. If so, please contact the office. 5. We will provide appropriate medication within the normal guidelines of their prescribed use. We will also be very cautious and aware of potential abuse and extended duration of patients' medication needs. a. Pain medications are for your comfort and to assist with sleep and rest so that the tissue can heal. They are not provided in order to return to normal activity and should not be used through the day. To do so or worsening pain at night can result from ongoing tissue damage and development of tolerance to the prescribed medicine. 6. Please allow 2-3 days to process refills. Prescriptions will not be mailed but must be picked up at the office. FOLLOW UP VISIT: Keep your scheduled follow-up appointment. Any questions, please call the office at . Pending Studies at Discharge: No Stand-Alone Forms: [facility], Smoking Cessation Medications and [place] Order Prescriptions: New tramadol 50 mg tablet 50 mg PO Q6H PRN (Reason: pain, moderate) Qty: 30 0RF oxycodone 5 mg tablet 5 mg PO Q6H PRN (Reason: pain) Qty: 30 0RF Continued multivitamin Tablet 1 tab PO QAM metformin 1,000 mg tablet 1,000 mg PO BID Qty: 180 3RF famotidine [Pepcid] 20 mg tablet 20 mg PO BID Qty: 180 3RF fluticasone propionate 50 mcg/actuation spray,suspension 1 spray intranasal DAILY Qty: 48 4RF Rx Instructions: administer into each nostril glipizide 10 mg tablet extended release 24hr 10 mg PO QAM Qty: 90 1RF insulin glargine [Basaglar KwikPen U-100 Insulin] 100 unit/mL (3 mL) insulin pen 25 unit subcut QPM Qty: 18 3RF (DME) pen needle, diabetic [BD Ultra-Fine Clotilde Pen Needle] 32 gauge x 5/32" needle See Rx Instructions .Route Qty: 100 3RF Rx Instructions: inject daily E11.9 (DME) FreeStyle Susy 2 [place] Misc See Rx Instructions .Route Qty: 1 0RF Rx Instructions: As directed DX:E11.9 (DME) FreeStyle Susy 2 Sensor Kit See Rx Instructions .Route Qty: 1 5RF Rx Instructions: As directed DX:E11.9 anastrozole [Arimidex] 1 mg Tablet 1 mg PO QAM Slow-Mag 71.5 mg Tablet,Delayed Release (Dr/Ec) 1 tab PO BID Caltrate 600 plus D 600 mg (1,500 mg)-800 unit tablet,chewable 1 tab PO BID Premarin 0.625 mg/gram cream 0.625 mg Vaginal UD Patient Comments: 1 dose Vaginal twice a week; Rx Instructions: 1 dose Vaginal twice a week; cetirizine [Zyrtec] 10 mg tablet 10 mg PO QAM Patient Comments: 10 mg PO daily as directed; Rx Instructions: 10 mg PO daily as directed; cholecalciferol (vitamin D3) [Vitamin D3] 25 mcg (1,000 unit) Capsule 25 mcg PO QPM acetaminophen 650 mg Tablet Extended Release 1,300 mg PO Q8H PRN (Reason: Pain) simvastatin 20 mg tablet 20 mg PO QPM Rx Instructions: TAKE 1 TABLET IN THE EVENING omeprazole 20 mg capsule,delayed release(DR/EC) 20 mg PO QAM Probiotic 1 cap PO QAM Discharge Orders: Discharge Order (Routine); Ordered 07/15/23 Ordered By: Ramos Coombs Admission Data Admit Date/Time: 07/12/23 10:03 Attending Provider: Ramos Coombs Admit Provider: Ramos Coombs Primary Care Provider: Ruth Barnett Other Providers: Akil Qureshi; [email or web address]
[2023-07-15] MEDS: bisacodyL 10 MG SUPP PR PRN (10:31)
--- NOTE | 2023-07-15 13:59 | Hospitalist Progress Note ---
Date of Service July 15, 2023 Assessment & Plan (1) Lumbar stenosis: Plan: Postoperative day #3 after fusion with instrumentation and grafting. Orthopedic spine management. (2) Acute blood loss anemia: Plan: Serial labs. No transfusion needed so far (3) Type 2 diabetes mellitus: Plan: ADA diet. Lantus basal insulin therapy uptitrated on July 14. Metformin has been restarted also on July 14. Sliding scale coverage as needed. Glucose remains elevated but this will not prevent discharge to home and expect glucose to normalize once she gets back to her usual routine (4) Acid reflux disease: Plan: Stable. Continue omeprazole, famotidine (5) Hyperlipidemia: Plan: Stable. Continue simvastatin (6) Hypomagnesemia: Plan: Parenteral supplementation continues. Serial labs Plan Medically stable for discharge today, July 15, per primary service Admission and Anticipated Discharge Date Admission Date: July 12, 2023 Subjective Alert and oriented. Medically stable. Primary service will be discharging the patient home today, July 15. Glucose is elevated but this should gradually return to baseline when she resumes her usual diabetic regimen at discharge and her usual diet. Mild hypomagnesemia has been corrected. Hemoglobin stable at 10.3. Postoperative day #3. She is medically stable for discharge home today, July 15 Review of Systems Review of Systems: Constitutional-no fever or chills ENT-no blurred vision, no double vision, no epistaxis, no sore throat Respiratory-no cough, no wheezing, no shortness of breath Cardiac-no palpitations, no chest pain, no syncope GI-no nausea, vomiting, diarrhea, melena, hematochezia -no urinary retention, no urinary incontinence, no dysuria, no hematuria Musculoskeletal-postoperative lumbar pain as expected with limited range of motion Skin-no bruising, no rashes, no pruritus Neuro-no isolated weakness, no paresthesia Psych-no depression, no anxiety Physical Exam Physical Exam: General-alert and oriented x3, no fever, no chills HEENT-head atraumatic and normocephalic, pupils equal and reactive to light, extraocular muscles intact Neck-no lymphadenopathy or thyromegaly, trachea midline Chest-clear to auscultation. No rales, wheezing or rhonchi Cardiac-regular rate and rhythm, normal S1 and S2 Abdomen-normal bowel sounds, nontender, no hepatosplenomegaly Musculoskeletallumbar surgical site clean and dry. Postoperative discomfort as expected. Limited range of motion as expected Extremities-no cyanosis, clubbing, or edema Neuro-cranial nerves II through XII intact, motor and sensory function within normal limits, strength symmetrical, no focal deficits Psych-normal affect, normal mood Results & Data Results & Data Vital Signs (Past 12 Hours) Vital Signs Temp Pulse Pulse Pulse Resp BP Pulse Ox 07/15/23 11:44 37.0 C 98 H 16 134/76 95 07/15/23 11:18 36.9 C 105 H 93 H 18 133/87 95 07/15/23 07:35 36.9 C 93 H 18 133/87 95 O2 Del Method 07/15/23 11:44 Room Air 07/15/23 11:18 07/15/23 07:35 Room Air PG Care Time/CCT Total # of Minutes Spent Total Time Spent with Patient: Total time spent is greater than 50% in coordination of care (as documented) at patient's floor/unit and/or counseling patient: Coding Level of Care Code 13482 SUB INP/OBS CARE MIN Diagnoses Lumbar stenosis M48.061 Acute blood loss anemia D62 Type 2 diabetes mellitus without complication, with long-term current use of insulin E11.9; Z79.4 Diabetes mellitus ferry terminal supervisor insulin use: with ferry terminal supervisor use Diabetes mellitus complication status: without complication Gastroesophageal reflux disease without esophagitis K21.9 Esophagitis presence: without esophagitis Mixed hyperlipidemia E78.2 Hyperlipidemia type: mixed hyperlipidemia Hypomagnesemia E83.42 (3) Type 2 diabetes mellitus Diabetes mellitus halfway insulin use: with halfway use Diabetes mellitus complication status: without complication Qualified Code(s): E11.9 - Type 2 diabetes mellitus without complications; Z79.4 - long term acute care registered nurse (current) use of insulin (4) Acid reflux disease Esophagitis presence: without esophagitis Qualified Code(s): K21.9 - Gastro- esophageal reflux disease without esophagitis (5) Hyperlipidemia Hyperlipidemia type: mixed hyperlipidemia Qualified Code(s): E78.2 - Mixed hyperlipidemia
== END 2023-07-15 14:33 | disposition home health service (06) | DRG 454 ==
LOC: ASU 06:12 → 3N 10:03
DX: Z79.84 Long term (current) use of oral hypoglycemic drugs; E11.65 Type 2 diabetes mellitus with hyperglycemia; Z79.890 Hormone replacement therapy; Z79.4 Long term (current) use of insulin; D62 Acute posthemorrhagic anemia; Z79.899 Other long term (current) drug therapy; M48.062 Spinal stenosis, lumbar region with neurogenic claudication; Z85.3 Personal history of malignant neoplasm of breast; J32.9 Chronic sinusitis, unspecified; E78.5 Hyperlipidemia, unspecified; Z79.811 Long term (current) use of aromatase inhibitors; E83.42 Hypomagnesemia; K21.9 Gastro-esophageal reflux disease without esophagitis; Z88.1 Allergy status to other antibiotic agents